=== PATIENT | male | born 1970 | race African-American/Black ===

== ENCOUNTER 2016-12-25 18:29 | Observation (INO) | payer OTHER, MEDICAID ==
[2016-12-25] MEDS ORDERED: NS 0.9% 1000 ML* 1,000 ML IV ONE (20:24)
--- NOTE | 2016-12-25 21:08 | ED ---
Izabella Valencia Salem, scribed for Judy Valerouel on 12/25/16 at 2000 . Neurological HPI - HPI Summary HPI Summary: Patient is a 46 y/o M who presents to the ED s/p 5 seizures today (with LOC). Pt was seen in the ED earlier today by Dr. Sheets who proposed that he be admitted. However, pt left AMA twice. He states that he had a seizure after leaving the first time, but not after the second time. Pt and are now agreeable to admission. states that pt has adult onset seizures since the past 5 years (hx of sz). He has been consistently taking Topamax and Vimpat, and he recently saw Dr. Black (neurologist). He denies any recent changes in medication. Pt states that his last seizure was approximately 1 month ago. He has no other complaints. - History of Current Complaint Chief Complaint: EDSeizure Stated Complaint: SEIZURE Time Seen by Provider: 12/25/16 19:49 Hx Obtained From: Patient, Family/Plant Etiologist - . Onset/Duration: Gradual Onset Timing: Intermittent Episodes Lasting: Onset Severity: Moderate Current Severity: Moderate Seizure Severity: Moderate Number of Seizures: 5 Pain Intensity: 0 Pain Scale Used: 0-10 Numeric Syncope Context: Loss of Consciousness: Yes Aggravating: Nothing Alleviating: Nothing Associated Signs and Symptoms: Positive: Negative Related Hx: Seizure - Allergy/Home Medications Allergies/Adverse Reactions: Allergies Allergy/AdvReac Type Severity Reaction Status Date / Time No Known Allergies Allergy Verified 11/16/13 12:27 PMH/Surg Hx/FS Hx/Imm Hx Cardiovascular History: Denies: Hx Pacemaker/ICD Sensory History: Denies: Hx Hearing Aid Neurological History: Reports: Hx Seizures Psychiatric History: Denies: Hx Panic Disorder - Surgical History Surgery Procedure, Year, and Place: TEETH EXTRACTIONS Infectious Disease History: Denies: Traveled Outside the [place] in Last 30 Days - Family History Known Family History: Positive: Other - neg: sz - Social History Alcohol Use: Weekly Alcohol Amount: 1-2 beers a week Hx Substance Use: Yes Substance Use Type: Reports: Marijuana Substance Use Comment - Amount & Last Used: per neurologist Hx Tobacco Use: No Smoking Status (MU): Former Smoker Review of Systems Negative: Fever Neurological: Other - Sz. LOC. All Other Systems Reviewed And Are Negative: Yes Physical Exam - Summary Physical Exam Summary: Well appearing, no pain distress Skin: warm, dry, reflects adequate perfusion Head/face: normal Eyes: EOMI, ANNAMARIA ENT: normal Neck: supple, nontender Resp: CTA, breath sounds present Cardio: RRR, pulses symm Abd: nontender, soft Bowel: present Musc: normal, strength/ROM intact Neuro: normal, sensory motor intact, A&Ox3 Triage Information Reviewed: Yes Vital Signs On Initial Exam: Initial Vitals Temp Pulse Resp BP Pulse Ox 98.2 F 56 18 129/81 100 12/25/16 18:32 12/25/16 18:32 12/25/16 18:32 12/25/16 18:32 12/25/16 18:32 Vital Signs Reviewed: Yes Diagnostics - Vital Signs Vital Signs Temp Pulse Resp BP Pulse Ox 12/25/16 18:32 98.2 F 56 18 129/81 100 - Laboratory Lab Statement: Any lab studies that have been ordered have been reviewed, and results considered in the medical decision making process. Course/Dx - Diagnoses Provider Diagnoses: Recurrent seizures - Physician Notifications Discussed Care Of Patient With: Demetrius Mcduffie Time Discussed With Above Provider: 20:23 Instructed by Provider To: Admit As Inpatient Admit/Transition Orders Completed By ED Provider: Yes Discharge - Discharge Plan Condition: Stable Disposition: ADMITTED TO [facility] The documentation as recorded by the Izabella fowler Salem accurately reflects the service I personally performed and the decisions made by Anjum medina Emmanuel.
[2016-12-25] MEDS ORDERED: LORazepam INJ* 2 MG/ML 1 ML VIAL IV PUSH ONE (23:36)
[2016-12-26] MEDS ORDERED: Heparin VIAL(*) 5000 UNITS/ML VIAL (FIVE THOUSAND) SUBCUT SCH (06:00)
--- NOTE | 2016-12-26 07:32 | HP ---
CC: [facility] [place] * H[place]ORY AND PHYSICAL: DATE OF ADMISSION: 12/26/16 CHIEF COMPLAINT: Seizure. HISTORY OF PRESENT ILLNESS: The patient is a 46-year-old who said this morning he was coming down to get a cup of coffee and the next thing he realized he was on the floor and his told him he was drooling and his teeth were chattering. He did lose control of his bladder, but he denies any tongue biting. He was also confused somewhat afterwards. Apparently, these happened multiple times and he came to the ER. For some reason, he came to the ER twice and left AMA twice and this time he came and decided to stay. He does see Dr. Black for his seizures. PAST MEDICAL HISTORY: Significant for the seizure disorder and meningitis when he was in college. CURRENT MEDICATIONS: 1. Vimpat 250 mg in the morning and 250 mg in the evening. 2. Topamax 100 mg twice daily. ALLERGIES: No known drug allergies. FAMILY HISTORY: Mother is alive at 71 with hypertension. Father is alive at 82 with hypertension. SOCIAL HISTORY: No tobacco, alcohol, or recreational drug use. He is unemployed. He is . His , Macy Hidalgo, is his health care proxy. He has 2 children. REVIEW OF SYSTEMS: A 14-point review of systems is completed with the patient. All pertinent positives and negatives are in the history of present illness, otherwise it is negative. PHYSICAL EXAMINATION GENERAL: A pleasant gentleman lying in bed, in no acute distress. VITAL SIGNS: Blood pressure 111/64, pulse ox 100%, respiratory rate 14 breaths per minute, heart rate 62 beats per minute, and temperature 98.1 degrees. HEENT: Normocephalic and atraumatic. Pupils are equal, round and reactive to light. Moist mucous membranes. NECK: Supple. No JVD, bruits, palpable thyroid, or lymphadenopathy. CHEST: Clear to auscultation and percussion bilaterally. CARDIOVASCULAR: S1, S2 appreciated. Regular rate and rhythm. No murmurs, gallops, or rubs. ABDOMEN: Positive bowel sounds in all 4 quadrants. Soft, nontender, and nondistended. EXTREMITIES: No cyanosis, clubbing, or edema; +2 peripheral pulses bilaterally. NEUROLOGIC: Alert and oriented x3. Moves all extremities. SKIN: No rashes or abnormalities. DIAGNOSTIC STUDIES/LAB DATA: White count 6.5, hemoglobin 13.9, hematocrit 42, and platelets are 191. Sodium is 139, potassium 3.9, chloride 110, CO2 22, BUN 18, creatinine 1.0, and glucose is 80. Urinalysis is unremarkable. EKG shows normal sinus rhythm at 66 beats per minutes, normal axis, and no acute ST- T wave changes. ASSESSMENT AND PLAN: 1. Seizure disorder: For some reason, the patient has had a lot of seizures today. He did have one month ago as well. He says he is complaint with medications. I will add Keppra 500 mg twice daily. The Neurology should see him tomorrow. We will do neuro check q.4 hours. 2. FEN: Regular diet. 3. DVT prophylaxis: Heparin subcu. 4. Code status: The patient is a full code. TIME SPENT: Over 80 minutes were spent on this H and P; more than 45 minutes of which were spent in direct [id number] contact with the patient, evaluation , physical exam, counseling, and coordination of care. [id number]/[facility] #: [id number] MOOKIE
[2016-12-26] MEDS ORDERED: levETIRAcetam TAB* 500 MG PO SCH (09:00)
[2016-12-26] MEDS ORDERED: Topiramate TAB(*) 100 MG PO SCH ×2 (09:00→21:00)
[2016-12-26] MEDS ORDERED: Lacosamide TAB* 100 MG TAB PO SCH ×4 (09:00→18:00)
[2016-12-26] MEDS ORDERED: LaCOSAMide TAB* 150 MG TAB PO SCH (09:30)
[2016-12-26] MEDS ORDERED: Topiramate TAB(*) 25 MG PO ONE (09:40)
[2016-12-26 10:28] VITALS: BP 116/66
--- NOTE | 2016-12-26 12:27 | DS ---
CC: Dr. Black * DATE OF ADMISSION: 12/26/2016. DATE OF DISCHARGE: 12/26/2016. HISTORY: This 46-year-old man was admitted for repeated seizures in one day. He has a five year history of seizure disorder. He has had both grand mal seizures and petit mal seizures. Usually his grand mal seizures occur during his sleep. This is a little more unusual. He was having grand mal seizures while awake. He was in the emergency room more than once yesterday. He signed out AMA when he awoke from a seizure; however, his had driven him there and he had a seizure on leaving the parking lot and she brought him right back. The total was somewhere about four or five seizures for the 24 hours, his last one was about 5:00 p.m. on 12/25/2016. The patient is followed by Dr. Black. He saw Dr. Black in the office on November 28. She had increased his Topiramate from 100 mg b.i.d. to 150 mg b.i.d. I called [facility] pharmacy and for some reason they never received a prescription for the new dose. The patient also saw Dr. Black just a few days ago in [place] in consultation and again was told to take the increased dose. The patient on the morning of discharge received 150 mg of Topiramate and his usual dose of Vimpat. I sent prescription for 100 mg of Topiramate and 50 mg Topiramate to take each one twice daily for a total of 150 b.i.d. His Lacosamide dose is 250 mg in the morning and 250 mg in the evening, also utilizing two different dose strength unit doses. FINAL DIAGNOSIS: Seizure disorder. DISCHARGE MEDICATIONS: 1. Topiramate 150 mg b.i.d. 2. Lacosamide 250 mg a.m., 150 mg p.m. [id number]/[facility] #: [id number] [facility]
--- NOTE | 2016-12-27 21:55 | EEG ---
ELECTROENCEPHALOGRAPHY: DATE OF STUDY: 12/26/16 - ROOM #[id number] REFERRING PHYSICIAN: Demetrius Mcduffie MD LOCATION: He was in the emergency room, I believe, when this was obtained. CLINICAL PROBLEM: The patient with repetitive seizures the day prior to this recording and perhaps the day of this recording. MEDICATIONS: Include: 1. Vimpat. 2. Keppra. 3. Topiramate. REPORT: This 16-channel EEG is remarkable for background activity consisting of a reasonably well formed alpha rhythm in the posterior derivations at about 9 to 10 cycles per second, which is symmetric. Moderate voltage beta rhythms are seen bifrontally. The patient is clinically drowsy at the beginning of the recording. Right temporal theta rhythms are noted with slow rhythms seen from the left temporal region. Vertex sharp activity and sleep spindles are noted episodically. The patient wakes intermittently with some movement artifact. Occasionally during drowsiness, some left anterior temporal sharp waves are noted without a clear following slow wave and without phase reversals. Activation procedures are not attempted. CLINICAL IMPRESSION: Borderline abnormal EEG due to asymmetrical slowing from the left temporal region due to drowsiness as well as some poorly-formed sharp waves without clear epileptiform morphology. This tracing could be compatible by postictal left hemispheric slowing, but there are no clear epileptiform discharges during this recording. [id number]/[facility] #: [id number] [facility]ENTERMonika
[2016-12-28 08:00] LABS: Topiramate 4.2 mcg/mL
[2016-12-28 10:41] LABS: Lacosamide 4.4 mcg/mL (1.0 - 10.0)
== END 2016-12-26 12:45 | disposition home or self-care (01) ==
LOC: ED 18:29 → MED 12-26 01:04 → INTOOBSV 12-26 01:04
PROVIDERS: ADMIT Internal Medicine; ATTEND Internal Medicine
DX: G40.409 Other generalized epilepsy and epileptic syndromes, not intractable, without status epilepticus (principal); Z87.891 Personal history of nicotine dependence
CPT/HCPCS: 80201; 80299; 95816; 96361; 96372; 96374; 99283; A9270-GY; G0378; J1644; J2060

== ENCOUNTER 2017-09-19 12:58 | Day surgery (SDC) | payer BC, MEDICAID, OTHER ==
--- NOTE | 2017-09-04 08:23 | HP ---
CC: Dr. Zakia Henderson, [facility] * ADMISSION HISTORY AND PHYSICAL: DATE OF ADMISSION: 09/19/17 ATTENDING SURGEON: Dr. Lawson Garcia.* (DICTATED BY AMADA ROONEY) CHIEF COMPLAINT: Right inguinal hernia. HISTORY OF PRESENT ILLNESS: This is a 46-year-old male with history of seizure disorder, who about 6 weeks ago noted presence of a mildly painful bulge in the right inguinal region. This may have been precipitated by a cough, but there was no other straining injury. He has been minimally symptomatic since then with mild discomfort related to physical activity though nothing to suggest incarceration or strangulation. He was seen by his primary care provider and referred for evaluation. He was seen in the office by Dr. Garcia on 08/30/17 at which time exam confirmed the presence of a right inguinal hernia. This was minimally tender and reducible. No hernia noted on the left. The indications for surgery were reviewed including options for approach. He understands the risks, benefits, and alternatives. He would like to proceed as scheduled with laparoscopic repair of right inguinal hernia with mesh. PAST MEDICAL HISTORY: Seizure disorder (followed by Dr. Black). No other significant medical history. PAST SURGICAL HISTORY: Previous surgery includes vasectomy and dental extractions, no problems reported. CURRENT MEDICATIONS: 1. Depakote 250 mg 1 tablet each morning along with a 500 mg tablet, Depakote 500 mg one tablet each morning and two tablets each evening. 2. Clonazepam 0.5 mg p.r.n. at onset of seizure, may repeat x1 p.r.n. (uses approximately once every 3 weeks). 3. Vimpat 200 mg b.i.d., Vimpat 50 mg q.a.m. and 3 tablets q.p.m. 4. Medical marijuana (THC 2.5 mg/CPD 47.5 mg 1:19 ratio, 0.5 mL (aerosol) b.i.d. used for seizure prophylaxis. 5. Vitamin D3 5000 IU once daily. 6. Alpha-lipoic acid 200 mg b.i.d. 7. CoQ10 200 mg q. day. 8. Crowley-3 1200 mg b.i.d. DRUG ALLERGIES: None known. FAMILY HISTORY: Negative for anesthesia problems, bleeding, or clotting disorders. SOCIAL HISTORY: The patient is . He has 2 children. He is not currently employed. He denies use of tobacco. He drinks 2 to 3 drinks per week. He denies any other recreational drug use. REVIEW OF SYSTEMS: General: No recent constitutional symptoms, although he has had some symptoms that he attributes to side effects from his seizure medications including night sweats. He relates a weight loss of 10 to 15 pounds over the past 1 to 2 years, again related to medications side effects. No other recent acute illnesses or constitutional symptoms. Cardiovascular: No chest pain, palpitations, history of hypertension, or heart murmur. Respiratory: No asthma, chronic cough, or shortness of breath. GI: No problems reported. : No problems reported, specifically no dysuria. Endocrine: No diabetes or thyroid dysfunction. Neurologic: As above. No additions. PHYSICAL EXAMINATION GENERAL: Well-nourished, well-developed, male in no acute distress. VITAL SIGNS: Height 5 feet 11 inches, weight 160 pounds, blood pressure 120/70 , pulse 72. HEENT: Pupils equal, round, and reactive. EOMs intact. No conjunctival pallor. Oropharynx teeth in good repair. No intraoral lesions. NECK: No lymphadenopathy, thyromegaly, or masses. LUNGS: Clear to auscultation. No wheezes. HEART: Regular rate and rhythm. No murmur noted. ABDOMEN: Soft, nontender to palpation. No palpable masses or organomegaly. Per Dr. Garcia's exam right inguinal hernia, reducible. No hernia noted on the left. GENITALIA: Not examined. RECTAL: Not done. BACK: No spinous process or CVA tenderness. EXTREMITIES: No edema. NEUROLOGIC: Grossly intact. SKIN: Warm and dry. No suspicious rashes or lesions. IMPRESSION: Right inguinal hernia. PLAN: Laparoscopic repair, right inguinal hernia with mesh. AMADA ROONEY [id number]/[facility] #: [id number] MTDD
[~2017-09-19 12:58] MED LIST: Buffered Lidocaine 0.9% SYRIN* 5 ML/SYR SYRINGE INTRADERM ONE; DiMENhydriNATE IV* 50 MG/ML VIAL IV PUSH PRN; Famotidine IV* 10 MG/ML 2 ML (20 mg) IV ONE; Morphine INJ* 2 MG/ML 1 ML CARPUJECT IV PRN; Naloxone* 0.4 MG/ML 1 ML VIAL IV PRN; PROCHLORPERAZINE INJ 5 MG/ML 2 ML VIAL IV PRN; Scopolamine 1.5 mg* PATCH TRANSDERM PRN; fentaNYL* 50 MCG/ML 2 ML VIAL (100 MCG VIAL) IV PRN
[2017-09-19] MEDS ORDERED: ceFAZolin 2 GM in 100 MLS NS (*) BAG IVPB ONE (13:03)
[2017-09-19] MEDS ORDERED: Famotidine IV* 10 MG/ML 2 ML (20 mg) ONE (13:03)
[2017-09-19] MEDS ORDERED: Midazolam* 1 MG/ML 5 ML VIAL (5 MG) ONE (13:44)
[2017-09-19] MEDS ORDERED: fentaNYL* 50 MCG/ML 2 ML VIAL (100 MCG VIAL) ONE (13:44)
[2017-09-19] MEDS ORDERED: Bupivacaine 0.25% SDV* 30 ML ONE (14:09)
[2017-09-19] MEDS ORDERED: Ketorolac INJ* 30 MG/ML 1 ML VIAL ONE (14:59)
[2017-09-19] MEDS ORDERED: Propofol* 10 MG/ML 20 ML BTL IV PUSH ONE (15:05)
[2017-09-19] MEDS ORDERED: HYDROcodone/ACETAMIN 5-325 MG* 1 TAB PO PRN (15:24)
[2017-09-19] MEDS ORDERED: Acetaminophen TAB* 325 MG PO PRN (15:24)
--- NOTE | 2017-09-19 15:28 | OP ---
Operative Report - Blank - Operative Report Date of Operation: 09/19/17 Note: Preop Dx: R inguinal hernia Postop Dx: R inguinal direct hernia Procedure: Laparoscopic R inguinal repair with mesh Surgeon: Dr. Garcia Anesthesia: [facility] Executive Director: Alex BARBER, Sherman BARBER, Cate BUTLER Fluids: 1200 ml LR EBL: less than 50 ml Drains: none Specimen: none Findings: see dictated operative note
[2017-09-19 16:32] VITALS: BP 132/86
--- NOTE | 2017-09-20 15:24 | OP ---
CC: Dr. Zakia Henderson * DATE OF OPERATION: 09/19/17 - [facility] DATE OF : 68 SURGEON: Lawson Garcia MD GARNETT MACHINE OPERATOR: AMADA Subramanian ANESTHESIOLOGIST: Dr. Reina. ANESTHESIA: General anesthesia. PRE-OP DIAGNOSIS: Right inguinal hernia. POST-OP DIAGNOSIS: Right inguinal hernia. OPERATIVE PROCEDURE: Laparoscopic inguinal hernia repair with mesh. ESTIMATED BLOOD LOSS: Minimal blood loss. FLUIDS: Minimal crystalloid fluid given. SPECIMEN: None. DRAINS: None. DESCRIPTION OF PROCEDURE: The patient was identified in the preoperative area. Patient's abdomen was marked. Consent signed. The patient was brought to the operating room and placed on the operating table in supine position. Preoperative antibiotics were given. Sequential devices were placed on bilateral lower extremities. General anesthesia was induced. The patient's abdomen was prepped and draped in standard surgical fashion. Time-out was performed. Infraumbilical incision was made. This was deepened down to the anterior fascia. On the left, this fascia was incised and the rectus pillar retracted laterally and then we bluntly entered into the preperitoneal plane, which was bluntly opened up down to the pubic symphysis. Next, a 12-mm trocar was inserted into this area. The balloon of the trocar inflated and a camera inserted through this after a pressure of 12-mm was insufflated. The patient tolerated the insufflation well. The camera was used for blunt dissection to free the preperitoneal plane. We then placed two 5-mm trocars in the lower midline and dissection was carried out on the right side. We exposed both Daniel's ligament on left and right. A direct hernia was identified. Prior to reducing this, I did check to see the epigastric vessels, which were maintained anteriorly and blunt dissection was carried out into Bogros space. The blunt dissection was carried out to reduce the direct inguinal hernia until it fell down nicely. The peritoneum was bluntly retracted posteriorly and the spermatic structures were skeletonized. There was no evidence of a hernia at the indirect space. Next, a Bard 3DMax medium sized mesh for the right side was then placed into the preperitoneal plane, allowed to unfurl. It was tacked at the Daniel's ligament on the right just above the pubic symphysis and then laterally as well. It had no tension and cover the full myopectineal orifice. We then allowed the abdomen to collapse. Trocars were removed under direct vision. Review of the abdomen showed that there was some pneumoperitoneum. For this reason, we dissected down to the posterior fascia, it was incised and the peritoneum opened and the gas was removed. I did not look in as I did not feel that we were in any significant violation of the peritoneal cavity, having seen the dissection. For this reason, we just closed the anterior fascia with a 0 Polysorb suture in a [id number] fashion over this a rectus muscle and then irrigated the wound and closed all 3 incisions with 4-0 Monocryl subcuticular sutures. Steri-Strips and sterile dressings were applied. The patient tolerated the procedure well, was woken up in the OR and transferred to the PACU in stable condition. [id number]/[facility] #: [id number] MOOKIE
[2017-09-22] MEDS ORDERED: Scopolamine PATCH Remove* 1 NOTE MISC PATCH OFF ONE (06:01)
== END 2017-09-19 17:08 | disposition home or self-care (01) ==
LOC: OR 12:58
PROVIDERS: ATTEND Surgery
DX: K40.90 Unilateral inguinal hernia, without obstruction or gangrene, not specified as recurrent (principal); G40.89 Other seizures
CPT/HCPCS: C1781; J1885; J2250; J2704; J3010

== ENCOUNTER 2018-02-01 14:00 | Inpatient (IN) | payer OTHER ==
[2018-02-01] MEDS ORDERED: Acetaminophen TAB* 325 MG PO PRN (16:45)
[2018-02-01] MEDS ORDERED: Ondansetron INJ* 2 MG/ML VIAL IV PRN (16:46)
[2018-02-01] MEDS ORDERED: diPHENhydraMINE PO* 25 MG PO PRN (16:53)
[2018-02-01] MEDS ORDERED: LORazepam INJ* 2 MG/ML 1 ML VIAL IV PRN (16:53)
--- NOTE | 2018-02-01 17:00 | ADMNOTE ---
Admission Note HPI - HPI Handedness: right History of Present Illness: Noah Hidalgo is a 47 year old man who has a history of childhood seizures, then was seizure free off medications from the age of 1 until age 40. He has focal seizures with impaired awareness and occasional evolution into bilateral convulsive activity (secondary generalized). He underwent long-term video EEG monitoring in [place] in November 2014, which captured 4 seizures over a 24 hour period, with data captured for 3 out of the 4. He had oral automatisms, bimanual automatisms associated with decreased responsiveness and agitated behavior. With secondary generalization, there was versive head movement to the right. Electrographically, there was semi-rhythmic delta-range slowing with was maximal in the left temporal region, but could be more diffusely represented in the left hemisphere in the initial portion of the seizure, then often a voltage attenuation followed by re-emergence of delta activity on the left. 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 Noah has continued to experience breakthrough seizures every few weeks despite trials of multiple medications. He is currently on a combination of Depakote and Vimpat, but has previously been treated with Dilantin, Lamictal, Keppra, Trileptal, zonisamide, Topamax and Onfi. Some of these medications were limited by side effects and are detailed below. He is also currently on a CBD oil herbal preparation. He last had a cluster of seizures on January 13 and . He had 2 "small" grand mal seizures, per his , and a few petit mal. He went into their daughter's room after one of the generalized seizures and repeatedly took his shirt off and put it back on. His agitation after convulsions often centers around the need to satisfy a basic need, like using the bathroom, taking off a sweat- soaked shirt, etc. Prior to these events, his last seizure was December 27. She gives him clonazepam after a focal seizure to try and prevent a generalized convulsion. He had not missed any medications, was not sleep-deprived, etc before the small cluster of seizures. Seizure Types: focal ("petit mal") - oral automatisms, eyes open, diaphoresis, unresponsive. secondary generalized ("grand mal") - tonic stiffening, hands turn in, clonic activity, urinary incontinence. Can become agitated after one Prior/current AEDs: Dilantin - rash Lamictal - rash Keppra- agitated/aggressive phenobarb - infancy Trileptal - incomplete efficacy and side effects (blurred vision) zonisamide - rash Topamax - incomplete efficacy but fewer GTCs. 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 Viral meningitis at age 17. PNEA Risk Factors: None PMH/Surg Hx/FS Hx/Imm Hx Endocrine/Hematology History: Denies: Hx Diabetes Cardiovascular History: Denies: Hx Hypertension, Hx Pacemaker/ICD GI History: Reports: Other GI Disorders - right inguinal hernia History: Denies: Hx Renal Disease Sensory History: Denies: Hx Contacts or Glasses, Hx Hearing Aid Opthamlomology History: Denies: Hx Contacts or Glasses Neurological History: Reports: Hx Seizures - reports diagnosed 2010 Psychiatric History: Denies: Hx Panic Disorder - Surgical History Surgery Procedure, Year, and Place: wisdom teeth extraction in dental office. vasectomy done in dr anthony office Hx Anesthesia Reactions: No Infectious Disease History: Denies: Traveled Outside the [place] in Last 30 Days - Family History Known Family History: Positive: Seizure Disorder - daughter, Other - Social History Occupation: Disabled Lives: With Family Alcohol Use: Rare Hx Substance Use: Yes Substance Use Type: Reports: Marijuana - CBD oil supplement Substance Use Comment - Amount & Last Used: medical marijuana Hx Tobacco Use: No Smoking Status (MU): Never Smoked Tobacco EMU Exam - Exam Physical/Neurological Exam: Physical Exam: General: Well appearing in no acute distress. MSK: no extremity deformities Derm: no rashes or lesions on visible skin Neurological Exam: Mental Status: Awake and alert. Oriented to person, place, and time. Fluent. Comprehension intact. Affect appropriate. Cranial Nerves: Visual tucker full to confrontation. Versions were full and without nystagmus. Facial musculature and sensation were symmetric. Hearing grossly intact to voice. Palate was upgoing bilaterally. Tongue was midline. Shoulder shrug was symmetric. Motor: Bulk, tone, and strength were normal throughout. Pronator drift was absent. There were no abnormal movements/no tremor. Sensory: Sensation to light touch intact. Romberg was deferred. Coordination: Finger to nose and heel to hernandez were intact. Reflexes: not tested. Gait: Narrow based and normal. EMU Review of Systems Review of Systems: A 12 point review of systems was completed and significantly positive for: tremor occasionally since starting Depakote. The remainder of the review was negative except as stated above in the HPI. EMU Diagnostics - Diagnostic Lab Results: CSF autoimmune encephalopathy panel negative Interim video-EEG long-term monitoring report: LTM November 2014: semi-rhythmic delta-range slowing with was maximal in the left temporal region, but could be more diffusely represented in the left hemisphere in the initial portion of the seizure, then often a voltage attenuation followed by re-emergence of delta activity on the left. 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 He continues to have intermittent seizures despite dual therapy with Depakote and Vimpat as well as use of a commercially available CBD oil supplement. LTM in 2014 suggested left lateralization, and probably temporal versus frontal origin, but was not sufficiently localizing. He had not wished to consider further surgical work up until recently, and since the last EEG monitoring was 3 years ago, the goal of the present terminal operations supervisor video/EEG monitoring session is to again characterize these events, evaluate the EEG for epileptiform activity and ensure that no significant changes have occurred which would preclude him from further surgical work up. After the last monitoring admission, it was suggested that if he wanted to pursue continued surgical work up, an interictal PET would be helpful and an ictal SPECT would be considered. Furthermore, he would need intracranial monitoring for localization if the above data were concordant. Plan: Admit to the Medicine Service, Dr. Donato attending, Dr Black consulting prison video EEG monitoring for the purpose of characterizing events above Seizure precautions 1mg IV lorazepam as needed for GTC with the goal to administer RAYMON for a convulsion to try and mitigate post-ictal agitation. May repeat in 3 minutes for agitation if needed Home AED regimen: Vimpat 250mg QAM and 350mg QPM and Depakote 750mg QAM and 1000mg QPM according to my records however pt states the nursing he is only taking 500mg BID. Unclear if he reduced the dose on his own and not currently present any longer. Will clarify * Decrease Vimpat to 200mg tonight and 150mg tomorrow morning. Continue Depakote dose unchanged Continue on other prescribed home medications, including CBD oil supplement , which has been approved by Geoff Segovia of pharmacy for patient to self- administer while he is here. * Discussed patient and nursing safety with nursing given patient's tendency to get agitated after a GTC. Will enlist his 's help also in educating nursing about how best to care for him in the post-ictal period. May need to allow him to leave the room if he feels he needs to walk and would need to unplug the headbox from the [employer] machine in this case. Should also allow him to use the bathroom (safely), change clothes if needed, etc. Gentle redirection as opposed to physically restraining will be important.
[2018-02-01] MEDS ORDERED: clonazePAM TAB(*) 0.5 MG PO PRN (17:34)
[2018-02-01] MEDS ORDERED: Lacosamide TAB* 100 MG TAB PO SCH ×2 (18:00→21:00)
[2018-02-01] MEDS ORDERED: LORazepam INJ* 2 MG/ML 1 ML VIAL PRN (18:58)
[2018-02-01] MEDS ORDERED: Divalproex DR TAB(*) 500 MG PO SCH (21:00)
[2018-02-01] MEDS ORDERED: MEDICAL MARIJUANA INH SCH (21:00)
[2018-02-01] MEDS: [UNRECOGNIZED DRUG - OTHER] PO SCH (21:09)
[2018-02-01] MEDS: Divalproex DR TAB(*) 500 MG PO SCH (21:10)
--- NOTE | 2018-02-01 21:18 | HP ---
CC: Dr. Henderson * [facility] MEDICINE HISTORY AND PHYSICAL: DATE OF ADMISSION: 02/01/18 PRIMARY CARE PHYSICIAN: Dr. Henderson. ATTENDING PHYSICIAN: Dr. Darci Donato * (dictation provided by Ryann Gomez NP). CHIEF COMPLAINT: Uncontrolled seizures. HISTORY OF PRESENT ILLNESS: Mr. Hidalgo is a 47-year-old male with a past medical history of seizures as a child who redeveloped seizures about 6 years, who has been followed currently by Dr. Elke Black from Neurology team. Mr. Hidalgo has had ongoing seizures usually at night while he is sleeping ranging from petit mal to grand mal seizures witnessed by his occurring about every few weeks. At times he can become agitated after a seizure while in the post-ictal state. Despite multiple medication changes, he has continued to have these uncontrolled seizures. He has had longtime epilepsy monitoring in [place] and did have documented seizure activity and returns now under the direction of Dr. Black. The patient states that prior coming into this hospitalization, he had no complaints. PAST MEDICAL HISTORY: Epilepsy, history of meningitis as a teenager. MEDICATIONS: 1. Keppra 750mg po qAM. 2. Keppra 1000mg po qPM. 3. Vimpat 250 mg po qAM. 4. Vimpat 350 mg po qPM. 5. Clonazepam ODT prn seizures. ALLERGIES: No known drug allergies. FAMILY HISTORY: The patient reports both his father and mother are alive and well. He has no specific other history to offer today. SOCIAL HISTORY: No report of tobacco use. The patient drinks alcohol very occasionally. No report of drug use. The patient lives with his , his healthcare proxy. REVIEW OF SYSTEMS: A 14-point review of systems was completed with Mr. Hidalgo and all those not mentioned above were negative. PHYSICAL EXAMINATION GENERAL: The patient is lying in the bed. He is hooked to the EEG monitor. His is at the bedside. VITAL SIGNS: Thus far, respiratory rate has been documented at 18. Remainder of the vital signs are pending. LUNGS: Clear to auscultation bilaterally with no accessory muscle use and good aeration. HEART: S1, S2. No murmur, rub, or gallop and regular. ABDOMEN: Soft and nontender with bowel sounds positive x4. EXTREMITIES: No cyanosis or edema. NEURO: He is alert. He is oriented x3. He moves all extremities equally. There is no facial asymmetry or focal weakness. Extraocular movements are intact. SKIN: Intact. DIAGNOSTIC STUDIES/LAB DATA: No labs for this visit or imaging. ASSESSMENT: Mr. Hidalgo is a 47-year-old male with past medical history of epilepsy with ongoing uncontrolled seizures ranging from petit mal to grand mal seizures usually at night while he is sleeping as witnessed by his . Dr. Black has recommended long-term continuous EEG monitoring to assist with further medication adjustments and management. Our recommendations are: The patient will be monitored in the EMU unit. He will have Ativan available for grand mal seizures. Dr. Black has recommended that we decrease his Vimpat dose and that has been accomplished per her recommendation. He will continue on his home Depakote dose. The patient takes CBD supplement, which he also has available to be self- administered. TIME SPENT: Approximately 60 minutes were spent in the consultation of this patient, more than half time spent with the patient at the bedside reviewing the events leading up to and during this hospitalization, performing the physical examination, and reviewing the plan of care. RYANN GOMEZ NP [id number]/CPS #: [id number] MOOKIE
[2018-02-02] MEDS ORDERED: Lacosamide TAB* 100 MG TAB PO SCH (09:00)
--- NOTE | 2018-02-02 09:33 | EEG ---
HALF-WAY VIDEO/EEG MONITORING - Monitoring Monitoring Start Date: 02/01/18 Current Monitoring Session: 02/01/18 to 02/04/18 EEG Clinical Indication: Noah Hidalgo is a 47 year old man with a history of seizures in infancy/childhood who was seizure-free of medications from age 1 to 40. Since then, he has had episodes of staring, unreponsiveness, oral and manual automatisms with occasional secondary generalization. With convulsions, he can become quite agitated in the post-ictal state. He has failed multiple antiseizure medications and despite current dual therapy with lacosamide and Depakote, he continues to experience seizures on a monthly basis. Previous LTM in 2015 demonstrated focal epilepsy which lateralizes to the left hemisphere, but exact localization was unclear. Recommendation was for additional imaging such as interictal PET and intracranial monitoring if he wished to pursue a surgical option. At that time, he did not wish to consider further surgical work up, but now wishes to do so and so repeat LTM is undertaken in order evaluate for any changes from the monitoring session 3 years ago which would preclude further surgical work up. Introduction: INTRODUCTION: The EEG was monitored from 21 scalp electrodes. Nineteen electrodes consisted of the standard parasagittal, temporal and midline leads of the International 10 -20 system. In addition, special electrodes T1 and T2 were placed. EEG data were recorded on an [employer] system with simultaneous MPEG-4 digital video recording of patient behavior. EEG recording was in a monopolar montage with all electrodes referenced to FCz. Significant behavioral events were signaled by an event button, or putative electrical seizure events were detected by a computer program. All EEG data were reviewed in their entirety on a monitor with reconstruction of montages and adjustments of sensitivity and filtering. Simultaneous patient behavior was viewed on an adjacent monitor and correlated with the EEG. - Medications Active Medications: Acetaminophen (Tylenol Tab*) 650 mg PO Q6H PRN PRN Reason: PAIN Diphenhydramine HCl (Benadryl Po*) 25 mg PO Q6H PRN PRN Reason: ITCHING Divalproex Sodium (Depakote Dr Tab(*)) 750 mg PO QAM DAV Divalproex Sodium (Depakote Dr Tab(*)) 1,000 mg PO 2100 DAV Last Admin: 02/01/18 21:10 Dose: 1,000 mg Lacosamide (Vimpat Tab*) 150 mg PO QAM DAV Lacosamide (Vimpat Tab*) 200 mg PO 2100 [facility] Last Admin: 02/01/18 21:10 Dose: 200 mg Lorazepam (Ativan Inj*) 1 mg IV PUSH ONCE PRN PRN Reason: ANXIETY Lorazepam (Ativan Inj*) 1 mg .SEE ORDER Q8H PRN PRN Reason: Generalized Tonic Clonic Seizu Pto: Hemp Extract (Oil) 1 admin PO 0900,1800 [facility] Last Admin: 02/01/18 21:09 Dose: 1 admin Ondansetron HCl (Zofran Inj*) 4 mg IV Q6H PRN PRN Reason: NAUSEA - Description Background: The waking background showed appropriate organization with clearly defined anterior-posterior voltage and frequency gradients. There was a defined posterior dominant rhythm of 9 Hertz, which was symmetrical and showed normal reactivity. Anteriorly, there was the expected pattern of lower voltage and more irregular theta and beta rhythms. There was intermittent, polymorphic theta slowing in the left frontotemporal region with sharp contours during waking. The sleep background was appropriately organized with well-developed spindles and vertex waves indicative of stage 2 sleep. These sleep transients showed appropriate morphology and were bilaterally synchronous and symmetrical. Development of diffuse delta range frequencies with dropout of stage 2 architecture accompanied transition to slow wave sleep, and a lower voltage mixed frequency pattern associated with eye movements was consistent with REM sleep. Intericatal Epileptiform Activity: #01 02/01: Medications: Depakote 750mg QAM and 1000mg QPM, lacosamide 200mg at HS and 150mg AM Background demonstrated normal organization with PDR 9, as above. During sleep, there were occasional epileptiform discharges of low to moderate voltage which were typically spike and slow wave in morphology but sometimes were broad-based sharp waves. These were maximally expressed at T3/T7 with a field to F7 and T1. These occurred a few times per hour. #02 02/02: Medications: Depakote 750mg QAM and 1000mg QPM, lacosamide 100mg at HS on 02/02 and 250mg AM on 02/03 The background continued to demonstrate normal organization, normal PDR. There was intermittent, polymorphic theta slowing in the left frontotemporal region with sharp contours during waking. Rarely, epileptiform discharges in the previously described distribution were seen during waking. The patient experienced a seizure at 03:06 on 02/03, then pulled off all wires at 03:10, ending this recording period. #03 02/03: Medications: Depakote 750mg QAM and 1000mg QPM, lacosamide 250mg QAM and 350mg QPM Background as stated above with epileptiform discharges during sleep maximal at T3/T7 with a field to F7, T1/FT9. #04 02/04: Medications: Depakote 750mg QAM and 1000mg QPM, lacosamide 250mg QAM and 350mg QPM Background as stated above with epileptiform discharges during sleep maximal at T3/T7 with a field to F7, T1/FT9. Ictal Activity: #01 02/01: No patient events, no seizures. #02 02/02: The patient experienced a seizure out of stage 2 sleep at 03:06:15 on 02/03. He had only been asleep for 5 minutes. This began with semi-rhythmic 2 to 3 Hz sharp wave discharges over the left temporal region, maximal at T3 but also well represented at T1, F7, A1 and within half a second also spread to the centroparietal region on the left. In the next second, activity was noted in the right frontal region as well at F4 and FP2. 3 seconds after the onset, the EEG was obscured by muscle artifact and 5 seconds after that, 5 Hz rhythmic activity could be seen centrally, with a bias to the left. There was also prominent, high voltage 2 to 4 Hz rhythmic activity noted at FP1, F7 and T1, intermixed with eye movement artifact. After another 30 seconds, there was rhythmic 3 Hz activity in the left hemisphere, maximal in the temporal region, but with a continued prominent frontal component as well. Ictal activity then spread more diffusely into the right hemisphere, slowed to 2 Hz rhythmic activity and superimposed clonus obscured much of the EEG. The seizure ended at 03:08:05 and was followed by diffuse voltage suppression. Two minutes later, he pulled off all wires and the nurse unplugged the headbox from the machine in anticipation of the patient needing to leave the room in his post-ictal confusion, so no further video was available. Clinically, the patient was asleep on his back with his head to the right side at the onset of the seizure. 3 seconds after the onset of the seizure, he began moving around in bed, rolled to his right side then back to his back, but he was covered with a blanket including having a blanket wrapped around his head. Forty seconds after the seizure onset, he began moving his legs independently and his right hand was fisted. He then developed yelling, clonic vocalizations and his head deviated toward the right as the ictal activity spread bilaterally. Clonic head movements were seen and once blankets were removed, independent, asynchronous clonic movements of the arms and legs were noted. Both arms remained flexed across the abdomen and the legs were extended. Toward the end of the seizure, the right arm activity ceased prior to the left arm by a few seconds and there was persistent left facial clonus with drooling for another 3 seconds before the ictal activity abruptyl ended. In the immediate post-ictal period that was observed, the patient began pulling at his clothing with eyes open, but not responsive to the nurse's voice. He then sat up and exhibited very agitated movement, rolling around in bed, trying to get out of bed multiple times, flipping over on his stomach then getting onto his hands and knees and then kneeling on the bed. He continued moving around continuously , then pulled his shirt over his head and removed all of his wires. The recording ended at this point. #03 02/03: No patient events, no seizures #04 02/04: The patient experienced a seizure at 10:27, which occurred while he was awake. He was listening to his at the onset of the seizure. The first noted change was low to moderate amplitude 5 to 6 Hz activity maximal at T1 and F7. Muscle artifact somewhat obscured the mid-temporal leads. After 20 seconds, this began to slow to rhythmic delta activity and transitioned to spiking 2 Hz activity diffusely represented in the left hemisphere but remaining maximal at T3. Frequent, intermittent muscle artifact then partially obscured the background until the seizure abruptly terminated after 50 seconds. There was some ictal tachycardia noted on telemetry (into the low 100s) but the EKG lead on the EEG had a poor signal. Clinically, at the onset of the seizure he was still and not speaking. 20 seconds after the electrical onset, he exhibited oral automatisms, which alerted his to the seizure and she pressed the event button. He put the nurse call cannon down with his left hand, which he'd been holding in his right hand. He made some semi-purposeful movements including flexing his left leg up and holding onto the knee with his left hand. His right arm is motionless during the seizure but it is difficult to see because of the camera angle. After the seizure he begins moving his right arm, then moves around slightly agitated in bed and sits forward. He was brief, repetitive humming vocalizations and reaches up and touches his head with his right hand. He moves both upper extremities equally. One minute after the seizure ends he is able to state his first name but is not able to follow commands to show 2 fingers or raise his arms. He does not remember a recall phrase given to him in the post- ictal period though he was able to register it. He becomes diaphoretic. Two minutes later he is able to hold up both arms to command but still cannot show 2 fingers. - Impression Impression: This is an abnormal long-term video EEG session. The patient experienced 2 seizures, the first of which evolved to bilateral convulsive activity. Electrographically, the first seizure began with a rhythmic delta pattern maximal in the left temporal region while the second seizure began with a theta pattern maximal in the left frontotemporal region, then developed into a rhythmic delta pattern. The first seizure began out of sleep and he exhibited restless movements before the ictal activity spread to both hemispheres and he developed bilateral, asynchronous clonus and forced head version to the right. In the post-ictal period, he exhibits extreme agitation, moving all over the bed, getting onto his hands and knees, getting in and out of bed and finally pulling his shirt off and the EEG leads. The second seizure occurred while he was awake and the primary manifestation was oral automatisms followed by diaphoresis and very mild agitated movements. In the post-ictal period he was not able to follow commands or remember a recall phrase. The interictal EEG is notable for polymorphic slowing in the left temporal region and epileptiform discharges primarily during sleep and rarely during waking, also in the left temporal region. In summary, these findings are supportive of focal epilepsy arising from the left hemisphere and most likely from the left temporal region, but may be neocortical in origin given the initial ictal pattern seen with the first seizure.
[2018-02-02] MEDS ORDERED: Lacosamide TAB* 100 MG TAB PO ONE ×2 (10:14→21:00)
--- NOTE | 2018-02-02 10:20 | PN ---
Epilepsy Service Progress Note Date of Service: 02/02/18 - Subjective No overnight events. Patient slept well. No complaints or questions. - Medications Active Medications: Acetaminophen (Tylenol Tab*) 650 mg PO Q6H PRN PRN Reason: PAIN Diphenhydramine HCl (Benadryl Po*) 25 mg PO Q6H PRN PRN Reason: ITCHING Divalproex Sodium (Depakote Dr Tab(*)) 750 mg PO QAM [facility] Divalproex Sodium (Depakote Dr Tab(*)) 1,000 mg PO 2100 [facility] Last Admin: 02/01/18 21:10 Dose: 1,000 mg Lacosamide (Vimpat Tab*) 150 mg PO QAM [facility] Lacosamide (Vimpat Tab*) 200 mg PO 2100 [facility] Last Admin: 02/01/18 21:10 Dose: 200 mg Lorazepam (Ativan Inj*) 1 mg IV PUSH ONCE PRN PRN Reason: ANXIETY Lorazepam (Ativan Inj*) 1 mg .SEE ORDER Q8H PRN PRN Reason: Generalized Tonic Clonic Seizu Pto: Hemp Extract (Oil) 1 admin PO 0900,1800 [facility] Last Admin: 02/01/18 21:09 Dose: 1 admin Ondansetron HCl (Zofran Inj*) 4 mg IV Q6H PRN PRN Reason: NAUSEA EMU Diagnostics - Diagnostic Most Recent Vital Signs: Vital Signs: Temp Pulse Resp BP Pulse Ox 98.6 F 62 18 122/78 100 02/01/18 20:23 02/01/18 20:30 02/01/18 20:23 02/01/18 20:23 02/01/18 20:23 Interim video-EEG long-term monitoring report: #02/01: Background showed normal organization with PDR 9. During sleep, there were occasional epileptiform discharges in the left temporal region, maximal at T3/T7 with a field to F7, T1/FT9. No seizures, no patient events. EMU Exam - Exam Physical/Neurological Exam: Physical Exam: General: Well appearing in no acute distress. MSK: no extremity deformities Derm: no rashes or lesions on visible skin Neurological Exam: Mental Status: Awake and alert. Oriented to person, place, and time. Fluent. Comprehension intact. Affect appropriate. Cranial Nerves: Visual tucker full to confrontation. Versions were full and without nystagmus. Facial musculature and sensation were symmetric. Hearing grossly intact to voice. Palate was upgoing bilaterally. Tongue was midline. Shoulder shrug was symmetric. Motor: Bulk, tone, and strength were normal throughout. Pronator drift was absent. There were no abnormal movements/no tremor. Sensory: Sensation to light touch intact. Romberg was deferred. Coordination: Finger to nose and heel to hernandez were intact. Reflexes: not tested. Gait: Narrow based and normal. 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 He can often get agitated in the post-ictal period after a convulsion. He is experiencing seizures on a monthly basis, typically several times per month, and they have a tendency to cluster when he does experience them. He was previously evaluated for surgical candidacy and it was felt that he would need additional imaging (interictal PET and possibly ictal SPECT) as well as intracranial monitoring if he wished to pursue a surgical option. He now wishes to reconsider a surgical option and LTM is being repeated to ensure no changes have occurred which would preclude him from further surgical work up, such as independent bitemporal seizures. No typical events recorded yet. Plan: * Continue intermediate card tender video EEG monitoring to capture typical episodes * Seizure precautions * lorazepam 1mg IV prn GTC, may be repeated in 3 minutes if needed for agitation after GTC * continue home dose Depakote 750mg QAM and 1000mg QPM * plan to further reduce Vimpat to 100mg tonight, 75mg tomorrow AM and then 50mg tomorrow night, then d/c * EKG to be done due to pt taking Vimpat * nursing aware that pt could be unhooked from Natus machine temporarily if needed in post-ictal period
[2018-02-02] MEDS ORDERED: LaCOSAMide TAB* 150 MG TAB PO ONE (10:22)
[2018-02-02] MEDS ORDERED: LaCOSAMide TAB* 150 MG TAB PO SCH (10:23)
[2018-02-02] MEDS: [UNRECOGNIZED DRUG - OTHER] PO SCH ×3 (10:26→20:12)
[2018-02-02] MEDS: Divalproex DR TAB(*) 250 MG PO SCH (10:26)
--- NOTE | 2018-02-02 10:29 | PN ---
Subjective Date of Service: 02/02/18 Interval History: Pt is feeling well. No overnight events. No issues with pain, SOB or bowel/ bladder. He states he uses CBD oil BID. Pt is currently awaiting seizure activity and hopes to "get this over with as soon as possible." Objective Active Medications: Acetaminophen (Tylenol Tab*) 650 mg PO Q6H PRN PRN Reason: PAIN Diphenhydramine HCl (Benadryl Po*) 25 mg PO Q6H PRN PRN Reason: ITCHING Divalproex Sodium (Depakote Dr Tab(*)) 750 mg PO QAM [facility] Divalproex Sodium (Depakote Dr Tab(*)) 1,000 mg PO 2100 [facility] Last Admin: 02/01/18 21:10 Dose: 1,000 mg Lacosamide (Vimpat Tab*) 150 mg PO QAM [facility] Lacosamide (Vimpat Tab*) 200 mg PO 2100 [facility] Last Admin: 02/01/18 21:10 Dose: 200 mg Lorazepam (Ativan Inj*) 1 mg IV PUSH ONCE PRN PRN Reason: ANXIETY Lorazepam (Ativan Inj*) 1 mg .SEE ORDER Q8H PRN PRN Reason: Generalized Tonic Clonic Seizu Pto: Hemp Extract (Oil) 1 admin PO 0900,1800 [facility] Last Admin: 02/01/18 21:09 Dose: 1 admin Ondansetron HCl (Zofran Inj*) 4 mg IV Q6H PRN PRN Reason: NAUSEA Oxygen Devices in Use Now: None Appearance: Middle aged male sitting on edge of the bed, NAD Eyes: No Scleral Icterus Ears/Nose/Mouth/Throat: Mucous Membranes Moist Respiratory: Symmetrical Chest Expansion and Respiratory Effort, Clear to Auscultation Cardiovascular: NL Sounds; No Murmurs; No JVD, RRR, No Edema Abdominal: NL Sounds; No Tenderness; No Distention Extremities: No Clubbing, Cyanosis Skin: No Nodules or Sclerosis Neurological: Alert and Oriented x 3 Assess/Plan/Problems-Billing Mr Hidalgo is a 47 yo M who has a h/o focal epiliepsy who 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 - Patient Problems (1) Focal epilepsy Current Visit: Yes Status: Acute Comment: The patient has not had any events on EEG yet. Vimpat dose to be reduced further; 100mg tonight and 75mg tomorrow AM then 50mg tomorrow evening then stop. He will continue on his usual dose of depakote and CBD oil. IV ativan available for GTC. Pt frequently will become agitated following a generalized convulsion. Will try to reduce pt's agitation by administering ativan as soon as a generalized convulsion occurs. (2) DVT prophylaxis Current Visit: Yes Status: Acute Code(s): [id number] - SNOMED Code(s): 192281127 Comment: ambulation, SCDs if pt agrees (3) Full code status Current Visit: Yes Status: Acute Code(s): Z78.9 - OTHER SPECIFIED HEALTH STATUS SNOMED Code(s): 612738010
[2018-02-02] MEDS: Divalproex DR TAB(*) 500 MG PO SCH (20:10)
[2018-02-03] MEDS: LORazepam INJ* 2 MG/ML 1 ML VIAL IV PUSH PRN ×2 (03:10→03:20)
--- NOTE | 2018-02-03 04:41 | PN ---
Progress Note - Progress Note Date of Service: 02/03/18 Note: Nursing & housekeeping director called reporting grand mal seizure s/p 2mg IV lorazepam w/ patient currently post-ictal & agitated per his typical. Unable to obtain vitals. Upon arrival, Mr Hidalgo is a 47YO black male writhing naked in his bed in moderate respiratory distress with froth at the mouth. He does not respond to questions or follow requests. Lungs are coarse R>L w/ RR in the 30s, an saO2 was finally reliably obtained reading in the mid-80s, positive supra- clavicular retractions and abdominal breathing. CV: RRR rate 130s. Abdomen: soft , non-distended, no apparent clinical tenderness. Extremities: moves x4, cool. Integument: diaphoretic. He was placed on 15L oxymask and saO2 joslyn into the high 90s. CXR: RML infiltrate. After monitoring him at the bedside for ~ 15minutes, he becalm more calm, but still was not following requests or responding to questions. His vital signs improved with his HR decreasing into the 100-110s, saO2 remained stable in the 90s with titration of supplemental oxygen down to 2L. Case reviewed with Monika Black MD. Assessment: plan grand mal seizure with atypical post-ictal period (although typical for patient) : s/p 2mg IV lorazepam : continue to monitor closely : nursing to call for further concerns Reassessment 02/03/2018 0445 Patient has calmed considerably. Can state his name & squeezes fingers. RR remains elevated in the mid-20s. saO2 remains good in the 90s on 2L. Continue to monitor in EMU. Reassessment 02/03/2018 0545 Mr Hidalgo is now AA&O to PPS. He does not recall the events of the evening. RR is now high teens w/ saO2 91-92%. CV rate is low 100s. He denies complaints. After further consideration, my recommendation is for transfer to the ICU since 1) he has an aspiration pneumonitis from this episode, 2) it has taken him 2.5 hours to fully clear his mentation, 3) further seizures may occur or be needed for surgical clearance, & 4) should another event occur with aspiration it could be more severe making the ICU [the only other hospital location monitoring is possibly] the safest location for the patient. I discussed these concerns with Monika Black MD neurology who agreed.
[2018-02-03] MEDS ORDERED: LORazepam INJ* 2 MG/ML 1 ML VIAL IV PUSH PRN (06:25)
--- NOTE | 2018-02-03 07:25 | PN ---
Subjective Date of Service: 02/03/18 Interval History: Events from overnight are noted. The patient has been moved to the ICU. He is feeling well. His mentation is back to how it was yesterday when I saw him. He denies any SOB. He states he went to sleep around 2am and does not recall the onset of his seizure or any other events from early this AM. Objective Active Medications: Acetaminophen (Tylenol Tab*) 650 mg PO Q6H PRN PRN Reason: PAIN Diphenhydramine HCl (Benadryl Po*) 25 mg PO Q6H PRN PRN Reason: ITCHING Divalproex Sodium (Depakote Dr Tab(*)) 750 mg PO QAM [facility] Last Admin: 02/02/18 10:26 Dose: 750 mg Divalproex Sodium (Depakote Dr Tab(*)) 1,000 mg PO 2100 [facility] Last Admin: 02/02/18 20:10 Dose: 1,000 mg Lacosamide (Vimpat Tab*) 50 mg PO BEDTIME ONE Stop: 02/03/18 21:01 Lacosamide (Vimpat Tab*) 75 mg PO 0900 ONE Stop: 02/03/18 09:01 Lorazepam (Ativan Inj*) 1 mg IV PUSH ONCE PRN PRN Reason: ANXIETY Last Admin: 02/03/18 03:20 Dose: 1 mg Lorazepam (Ativan Inj*) 1 mg IV PUSH Q8H PRN PRN Reason: Generalized Tonic Clonic Seizu Pto: Hemp Extract (Oil) 1 admin PO 0900,2100 [facility] Last Admin: 02/02/18 20:11 Dose: 1 admin Ondansetron HCl (Zofran Inj*) 4 mg IV Q6H PRN PRN Reason: NAUSEA Vital Signs - 8 hr 02/03/18 02/03/18 02/03/18 03:10 03:20 03:30 Temperature Pulse Rate 141 Respiratory 40 40 Rate Blood Pressure 170/90 (mmHg) O2 Sat by Pulse Oximetry 02/03/18 02/03/18 02/03/18 03:40 03:45 04:00 Temperature Pulse Rate Respiratory Rate Blood Pressure (mmHg) O2 Sat by Pulse 71 99 80 Oximetry 02/03/18 02/03/18 02/03/18 04:05 04:17 05:22 Temperature Pulse Rate 102 100 Respiratory Rate Blood Pressure (mmHg) O2 Sat by Pulse 93 91 97 Oximetry 02/03/18 02/03/18 02/03/18 06:55 07:02 07:17 Temperature 97.7 F 98.9 F Pulse Rate 87 94 Respiratory 16 18 Rate Blood Pressure 100/78 89/63 (mmHg) O2 Sat by Pulse 93 97 Oximetry Oxygen Devices in Use Now: Nasal Cannula - 2L Appearance: Middle aged male lying in bed, NAD Eyes: No Scleral Icterus Ears/Nose/Mouth/Throat: Mucous Membranes Moist Respiratory: Symmetrical Chest Expansion and Respiratory Effort, Clear to Auscultation - R>L lower lobe crackles Cardiovascular: NL Sounds; No Murmurs; No JVD, RRR, No Edema Abdominal: NL Sounds; No Tenderness; No Distention Extremities: No Clubbing, Cyanosis Skin: No Nodules or Sclerosis Neurological: Alert and Oriented x 3 Assess/Plan/Problems-Billing Mr Hidalgo is a 47 yo M who has a h/o focal epiliepsy who underwent skilled nursing monitoring in 2014 who now returns for repeat LTM for characterization of he seizures and to ensure there have been no changes prior to pursuing a surgical option. - Patient Problems (1) Focal epilepsy Current Visit: Yes Status: Acute Comment: By description the patient had a seizure with secondary generalization. He received 2 mg IV ativan. It took a couple hours for the patient's mentation to normalize. It appears he developed an aspiration pneumonitis. RML infiltrate is seen on CXR. The patient was moved to the ICU for further monitoring as if he were to develop another seizure with secondary generalization and aspirate again he could require further respiratory support. Dr. Black was notified overnight. Await further recommendations from Dr. Black-the patient is currently scheduled to receive his usual dose of depakote and CBD oil and only 50mg of lacosamide. (2) DVT prophylaxis Current Visit: Yes Status: Acute Code(s): [id number] - SNOMED Code(s): 394836253 Comment: ambulation, SCDs if pt agrees (3) Full code status Current Visit: Yes Status: Acute Code(s): Z78.9 - OTHER SPECIFIED HEALTH STATUS SNOMED Code(s): 809875944
--- NOTE | 2018-02-03 08:08 | RAD ---
INDICATION: Seizure COMPARISON: Chest x-ray November 2013 TECHNIQUE: Single AP portable view of the chest was obtained. FINDINGS: Image quality is compromised due to the relative inferiority of a portable chest x-ray. The heart and mediastinum exhibit normal size and contour. There are patchy densities overlying the bilateral lungs. There is a linear density at the mid-level right lung morphologically most consistent with atelectasis. There is bibasilar costophrenic angle blunting. Visualized bones are normal for the patient's age. IMPRESSION: Interval appearance of patchy densities bilaterally could be due to pulmonary edema, drug reaction or pneumonia. There are small bibasilar pleural effusions.
[2018-02-03] MEDS ORDERED: Lacosamide TAB* 50 MG TAB PO ONE ×2 (09:00→21:00)
[2018-02-03] MEDS: [UNRECOGNIZED DRUG - OTHER] PO SCH ×2 (10:17→20:06)
[2018-02-03] MEDS: Divalproex DR TAB(*) 250 MG PO SCH (10:17)
--- NOTE | 2018-02-03 10:19 | PN ---
Epilepsy Service Progress Note Date of Service: 02/03/18 - Subjective Patient had a seizure just after 3am which began as a focal seizure, then quickly secondarily generalized. The entire event lasted just under 2 minutes. He became very agitated in the post-ictal period, as is typical for him. He removed his clothing, climbed in and out of bed, moved all over the bed in different positions and then pulled all of his wires off. A response team was called. Security was involved. Dr Gunter was notified, came to assess the patient and found him to have a peripheral O2 sat in the 80s, which he felt was reliable, and after applying O2 initially high flow it came up into the 90s. There was concern for a RML infiltrate and given his intense post-ictal state with the possibility of further seizures, the decision was made to move him to ICU where he could continue to be monitored but in a setting where more equipment would be available if needed for respiratory support. Today, Will is sleepy and does not remember anything about the event. He only fell asleep about 5 minutes before the event occurred. He was not intentionally sleep depriving himself, just had a hard time falling asleep. The event and care was discussed with his as well. - Medications Active Medications: Acetaminophen (Tylenol Tab*) 650 mg PO Q6H PRN PRN Reason: PAIN Diphenhydramine HCl (Benadryl Po*) 25 mg PO Q6H PRN PRN Reason: ITCHING Divalproex Sodium (Depakote Dr Tab(*)) 750 mg PO QAM [facility] Last Admin: 02/02/18 10:26 Dose: 750 mg Divalproex Sodium (Depakote Dr Tab(*)) 1,000 mg PO 2100 [facility] Last Admin: 02/02/18 20:10 Dose: 1,000 mg Lacosamide (Vimpat Tab*) 50 mg PO BEDTIME ONE Stop: 02/03/18 21:01 Lorazepam (Ativan Inj*) 1 mg IV PUSH ONCE PRN PRN Reason: ANXIETY Last Admin: 02/03/18 03:20 Dose: 1 mg Lorazepam (Ativan Inj*) 1 mg IV PUSH Q8H PRN PRN Reason: Generalized Tonic Clonic Seizu Pto: Hemp Extract (Oil) 1 admin PO 0900,2100 [facility] Last Admin: 02/02/18 20:11 Dose: 1 admin Ondansetron HCl (Zofran Inj*) 4 mg IV Q6H PRN PRN Reason: NAUSEA EMU Diagnostics - Diagnostic Most Recent Vital Signs: Vital Signs: Temp Pulse Resp BP Pulse Ox 98.9 F 80 23 105/81 96 02/03/18 07:17 02/03/18 08:15 02/03/18 08:15 02/03/18 08:15 02/03/18 08:15 Interim video-EEG long-term monitoring report: #01 02/01: Background showed normal organization with PDR 9. During sleep, there were occasional epileptiform discharges in the left temporal region, maximal at T3/T7 with a field to F7, T1/FT9. No seizures, no patient events. #02 02/02: The patient experienced a seizure out of stage 2 sleep at 03:06:15 on 02/03. He had only been asleep for 5 minutes. This began with semi-rhythmic 2 to 3 Hz sharp wave discharges over the left temporal region, maximal at T3 but also well represented at T1, F7, A1 and within half a second also spread to the centroparietal region on the left. In the next second, activity was noted in the right frontal region as well at F4 and FP2. 3 seconds after the onset, the EEG was obscured by muscle artifact and 5 seconds after that, 5 Hz rhythmic activity could be seen centrally, with a bias to the left. There was also prominent, high voltage 2 to 4 Hz rhythmic activity noted at FP1, F7 and T1, intermixed with eye movement artifact. After another 30 seconds, there was rhythmic 3 Hz activity in the left hemisphere, maximal in the temporal region, but with a continued prominent frontal component as well. Ictal activity then spread more diffusely into the right hemisphere, slowed to 2 Hz rhythmic activity and superimposed clonus obscured much of the EEG. The seizure ended at 03:08:05 and was followed by diffuse voltage suppression. Two minutes later, he pulled off all wires and the nurse unplugged the headbox from the machine in anticipation of the patient needing to leave the room in his post-ictal confusion, so no further video was available. Clinically, the patient was asleep on his back with his head to the right side at the onset of the seizure. 3 seconds after the onset of the seizure, he began moving around in bed, rolled to his right side then back to his back, but he was covered with a blanket including having a blanket wrapped around his head. Forty seconds after the seizure onset, he began moving his legs independently and his right hand was fisted. He then developed yelling, clonic vocalizations and his head deviated toward the right as the ictal activity spread bilaterally. Clonic head movements were seen and once blankets were removed, independent, asynchronous clonic movements of the arms and legs were noted. Both arms remained flexed across the abdomen and the legs were extended. Toward the end of the seizure, the right arm activity ceased prior to the left arm by a few seconds and there was persistent left facial clonus with drooling for another 3 seconds before the ictal activity abruptyl ended. In the immediate post-ictal period that was observed, the patient began pulling at his clothing with eyes open, but not responsive to the nurse's voice. He then sat up and exhibited very agitated movement, rolling around in bed, trying to get out of bed multiple times, flipping over on his stomach then getting onto his hands and knees and then kneeling on the bed. He continued moving around continuously , then pulled his shirt over his head and removed all of his wires. The recording ended at this point. Otherwise, the background continued to demonstrate similar findings to the previous day's recording. Radiology Impressions: CXR: patchy bilateral infiltrates, ddx: pulmonary edema, drug reaction, pneumonia EMU Exam - Exam Physical/Neurological Exam: Physical Exam: General: Asleep in ICU, able to be roused with light tactile stimulation Heart: RRR Lungs: CTAB. No crackles heard on my exam. HEENT: no oral trauma noted MSK: no extremity deformities Derm: no rashes or lesions on visible skin Neurological Exam: Mental Status: Awake and alert. Oriented to person, place, and time. Fluent. Comprehension intact. Affect appropriate. Cranial Nerves: Visual tucker full to confrontation. Versions were full and without nystagmus. Facial musculature and sensation were symmetric. Hearing grossly intact to voice. Palate was upgoing bilaterally. Tongue was midline. Shoulder shrug was symmetric. Motor: Bulk, tone, and strength were normal throughout. Pronator drift was absent. There were no abnormal movements/no tremor. Sensory: Sensation to light touch intact. Romberg was deferred. Coordination: Finger to nose intact. Reflexes: not tested. 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 He can often get agitated in the post-ictal period after a convulsion. He is experiencing seizures on a monthly basis, typically several times per month, and they have a tendency to cluster when he does experience them. He was previously evaluated for surgical candidacy and it was felt that he would need additional imaging (interictal PET and possibly ictal SPECT) as well as intracranial monitoring if he wished to pursue a surgical option. He now wishes to reconsider a surgical option and LTM is being repeated to ensure no changes have occurred which would preclude him from further surgical work up, such as independent bitemporal seizures. One typical event recorded with secondary generalization followed by intense post-ictal agitation which is common for him. He is sleepy but otherwise at baseline today. The EEG showed initial rhythmic delta activity in the left hemisphere, maximal in the temporal region, with rapid spread within the left hemisphere and into the right frontal region, followed by secondary generalization. He is now requiring a bit of O2 by nasal cannula but denies SOB. He may have experienced some aspiration last night and his reports it is common for his RR to increase significantly in the post-ictal period. O2 to be weaned as able. The EEG above appeared similar to 2015 and given the potential risks to the patient of inducing further seizures, I do not think we need to capture additional seizures to answer the question at hand (however, he is likely to experience additional seizures in the next 24 hours because he has a tendency to cluster). Will restart home dose Vimpat, continue to monitor in ICU. Plan: * Continue long-term video EEG monitoring to capture typical episodes * Seizure precautions * lorazepam 1mg IV prn GTC, may be repeated in 3 minutes if needed for agitation after GTC * continue home dose Depakote 750mg QAM and 1000mg QPM * Increase Vimpat to home dose of 250mg QAM and 350mg QPM. Supplement this AM's dose up to 250mg as needed. * EKG reviewed, bradycardia but no SC prolongation noted. * again, pt could be unhooked from Natus machine temporarily if needed in a post -ictal period * if no convulsions overnight with significant post-ictal agitation, plan to d/ c tomorrow * Pt will need to be discussed in PR[facility]. Briefly discussed my ongoing concerns with about safety of intracranial monitoring. Would consider whether VNS could be a measure to reduce GTCs or intensity of post-ictal period as a way to make intracranial monitoring safer.
[2018-02-03] MEDS ORDERED: Lacosamide TAB* 50 MG TAB PO SCH ×2 (11:00→18:00)
[2018-02-03] MEDS: Lacosamide TAB* 100 MG TAB PO SCH (12:11)
[2018-02-03] MEDS: LaCOSAMide TAB* 150 MG TAB PO SCH ×2 (12:11→17:58)
[2018-02-03 16:26] LABS: Hematocrit 42 % (42-52); Hemoglobin 14.3 g/dl (14.0-18.0); Mean Corpuscular HGB Conc 34 g/dl (31-36); Mean Corpuscular Hemoglobin 28 pg (27-31); Mean Corpuscular Volume 84 fL (80-94); Mean Platelet Volume 8.8 um3 (7.4-10.4); Platelet Count 232 10^3/ul (150-450); Red Blood Count 5.07 10^6/ul (4.00-5.40); Red Cell Distribution Width 17 % (10.5-15); White Blood Count 6.9 10^3/ul (3.5-10.8)
[2018-02-03 16:33] LABS: EGFR Non-African American 84.6 (>60)
[2018-02-03] MEDS ORDERED: Lacosamide TAB* 100 MG TAB PO SCH (18:00)
[2018-02-03] MEDS: Divalproex DR TAB(*) 500 MG PO SCH (20:05)
[2018-02-04] MEDS: Lacosamide TAB* 100 MG TAB PO SCH (08:48)
[2018-02-04] MEDS: LaCOSAMide TAB* 150 MG TAB PO SCH (08:49)
[2018-02-04] MEDS: [UNRECOGNIZED DRUG - OTHER] PO SCH (08:49)
[2018-02-04] MEDS: Divalproex DR TAB(*) 250 MG PO SCH (08:50)
[2018-02-04] MEDS ORDERED: Lacosamide TAB* 100 MG TAB PO SCH (09:00)
[2018-02-04] MEDS: LORazepam INJ* 2 MG/ML 1 ML VIAL IV PUSH PRN (10:31)
--- NOTE | 2018-02-04 10:55 | PN ---
Epilepsy Service Progress Note Date of Service: 02/04/18 - Subjective He had a fever yesterday, which self-resolved, did not take antipyretic. Patient did not have any further seizures overnight, but then after rounding on patient I was called back to the room just after 10:30 for a focal seizure. He was slightly agitated, not able to follow commands, not able to speak normally and could not remember a recall phrase. I advised 1mg lorazepam IV be given after the event since he tends to cluster and we want to prevent another GTC. Prior to his focal seizure, I reviewed the EEG and video of his previous seizure with him and his , at his request. - Medications Active Medications: Acetaminophen (Tylenol Tab*) 650 mg PO Q6H PRN PRN Reason: PAIN Diphenhydramine HCl (Benadryl Po*) 25 mg PO Q6H PRN PRN Reason: ITCHING Divalproex Sodium (Depakote Dr Tab(*)) 750 mg PO QAM [facility] Last Admin: 02/04/18 08:50 Dose: 750 mg Divalproex Sodium (Depakote Dr Tab(*)) 1,000 mg PO 2100 [facility] Last Admin: 02/03/18 20:05 Dose: 1,000 mg Lacosamide (Vimpat) 150 mg PO 0900,1800 [facility] Last Admin: 02/04/18 08:49 Dose: 150 mg Lacosamide (Vimpat Tab*) 200 mg PO QPM [facility] Last Admin: 02/03/18 17:58 Dose: 200 mg Lacosamide (Vimpat Tab*) 100 mg PO DAILY [facility] Last Admin: 02/04/18 08:48 Dose: 100 mg Lorazepam (Ativan Inj*) 1 mg IV PUSH ONCE PRN PRN Reason: ANXIETY Last Admin: 02/04/18 10:31 Dose: 1 mg Lorazepam (Ativan Inj*) 1 mg IV PUSH Q8H PRN PRN Reason: Generalized Tonic Clonic Seizu Pto: Hemp Extract (Oil) 1 admin PO 0900,2100 [facility] Last Admin: 02/04/18 08:49 Dose: 1 admin Ondansetron HCl (Zofran Inj*) 4 mg IV Q6H PRN PRN Reason: NAUSEA EMU Diagnostics - Diagnostic Most Recent Vital Signs: Vital Signs: Temp Pulse Resp BP Pulse Ox 98.7 F 97 16 117/94 97 02/04/18 08:00 02/04/18 10:02 02/04/18 10:31 02/04/18 10:02 02/04/18 10:02 Lab Results: Laboratory Tests 02/03/18 02/03/18 16:03 16:03 WBC 6.9 RBC 5.07 Hgb 14.3 Hct 42 MCV 84 MCH 28 MCHC 34 RDW 17 H Plt Count 232 MPV 8.8 Sodium 137 Potassium 4.2 Chloride 104 Carbon Dioxide 22 Anion Gap 11 BUN 14 Creatinine 0.95 Est GFR ( Amer) 102.4 Est GFR (Non-Af Amer) 84.6 BUN/Creatinine Ratio 14.7 Glucose 101 H Calcium 9.4 Interim video-EEG long-term monitoring report: #01 02/01: Background showed normal organization with PDR 9. During sleep, there were occasional epileptiform discharges in the left temporal region, maximal at T3/T7 with a field to F7, T1/FT9. No seizures, no patient events. #02 02/02: The patient experienced a seizure out of stage 2 sleep at 03:06:15 on 02/03. He had only been asleep for 5 minutes. This began with semi-rhythmic 2 to 3 Hz sharp wave discharges over the left temporal region, maximal at T3 but also well represented at T1, F7, A1 and within half a second also spread to the centroparietal region on the left. In the next second, activity was noted in the right frontal region as well at F4 and FP2. 3 seconds after the onset, the EEG was obscured by muscle artifact and 5 seconds after that, 5 Hz rhythmic activity could be seen centrally, with a bias to the left. There was also prominent, high voltage 2 to 4 Hz rhythmic activity noted at FP1, F7 and T1, intermixed with eye movement artifact. After another 30 seconds, there was rhythmic 3 Hz activity in the left hemisphere, maximal in the temporal region, but with a continued prominent frontal component as well. Ictal activity then spread more diffusely into the right hemisphere, slowed to 2 Hz rhythmic activity and superimposed clonus obscured much of the EEG. The seizure ended at 03:08:05 and was followed by diffuse voltage suppression. Two minutes later, he pulled off all wires and the nurse unplugged the headbox from the machine in anticipation of the patient needing to leave the room in his post-ictal confusion, so no further video was available. Clinically, the patient was asleep on his back with his head to the right side at the onset of the seizure. 3 seconds after the onset of the seizure, he began moving around in bed, rolled to his right side then back to his back, but he was covered with a blanket including having a blanket wrapped around his head. Forty seconds after the seizure onset, he began moving his legs independently and his right hand was fisted. He then developed yelling, clonic vocalizations and his head deviated toward the right as the ictal activity spread bilaterally. Clonic head movements were seen and once blankets were removed, independent, asynchronous clonic movements of the arms and legs were noted. Both arms remained flexed across the abdomen and the legs were extended. Toward the end of the seizure, the right arm activity ceased prior to the left arm by a few seconds and there was persistent left facial clonus with drooling for another 3 seconds before the ictal activity abruptyl ended. In the immediate post-ictal period that was observed, the patient began pulling at his clothing with eyes open, but not responsive to the nurse's voice. He then sat up and exhibited very agitated movement, rolling around in bed, trying to get out of bed multiple times, flipping over on his stomach then getting onto his hands and knees and then kneeling on the bed. He continued moving around continuously , then pulled his shirt over his head and removed all of his wires. The recording ended at this point. Otherwise, the background continued to demonstrate similar findings to the previous day's recording. #03 02/03: No further seizures. Background as stated above with epileptiform discharges during sleep maximal at T3/T7 with a field to F7, T1/FT9. #04 02/04: to be reviewed EMU Exam - Exam Physical/Neurological Exam: Physical Exam: General: awake, fully alert Heart: RRR Lungs: CTAB. No crackles. HEENT: no oral trauma noted MSK: no extremity deformities Derm: no rashes or lesions on visible skin Neurological Exam: Mental Status: Awake and alert. Oriented to person, place, and time. Fluent. Comprehension intact. Affect appropriate. Cranial Nerves: Visual tucker full to confrontation. Versions were full and without nystagmus. Facial musculature and sensation were symmetric. Hearing grossly intact to voice. Palate was upgoing bilaterally. Tongue was midline. Shoulder shrug was symmetric. Motor: Bulk, tone, and strength were normal throughout. Pronator drift was absent. There were no abnormal movements/no tremor. Sensory: Sensation to light touch intact. Romberg was deferred. Coordination: Finger to nose intact. Reflexes: not tested. Gait: not observed During seizure, patient was diaphoretic, slightly agitated (moving nurse call cannon, grabbing at seizure pads), eyes open, some intermittent humming vocalizations, not able to follow commands, no able to remember a recall phrase. 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 He can often get agitated in the post-ictal period after a convulsion. He is experiencing seizures on a monthly basis, typically several times per month, and they have a tendency to cluster when he does experience them. He was previously evaluated for surgical candidacy and it was felt that he would need additional imaging (interictal PET and possibly ictal SPECT) as well as intracranial monitoring if he wished to pursue a surgical option. He now wishes to reconsider a surgical option and LTM is being repeated to ensure no changes have occurred which would preclude him from further surgical work up, such as independent bitemporal seizures. One typical event recorded with secondary generalization followed by intense post-ictal agitation which is common for him. The EEG showed initial rhythmic delta activity in the left hemisphere, maximal in the temporal region, with rapid spread within the left hemisphere and into the right frontal region, followed by secondary generalization. He has recovered well from that seizure. Had a brief fever yesterday associated with chills which self-resolved, says he experiences similar at home. Now he's had an additional focal seizure, captured on EEG. Will review. Given lorazepam 1mg to try and prevent further seizures. still feels ok taking him home today and would prefer this, will return to ED if things escalate or he experiences a GTC. Will monitor for another 1 to 2 hours prior to d/c. Plan: * will d/c termite helper video EEG monitoring * Seizure precautions * lorazepam 1mg IV prn GTC, may be repeated in 3 minutes if needed for agitation after GTC * continue home dose Depakote 750mg QAM and 1000mg QPM and Vimpat 250mg QAM and 350mg QPM. * Pt will need to be discussed in [facility]. Again discussed my ongoing concerns about safety of intracranial monitoring. Would consider whether VNS could be a measure to reduce GTCs or intensity of post-ictal period as a way to make intracranial monitoring safer. Will likely need interictal PET, not sure if ictal SPECT would be helpful given rapid spread of ictal activity. * Plan to d/c later today as long as he remains stable * Pt to follow up with me in [place] in March, they will call for an appointment.
[2018-02-04 12:16] VITALS: BP 130/101
--- NOTE | 2018-02-05 03:42 | DS ---
CC: Zakia Henderson DO; Dr. Black * DISCHARGE SUMMARY: DATE OF ADMISSION: 02/01/18 DATE OF DISCHARGE: 02/04/18 PRIMARY CARE PROVIDER: Zakia Henderson DO. NEUROLOGIST: Dr. Black. PRINCIPAL DIAGNOSES: 1. Seizure disorder. 2. Severe postictal agitation. 3. Aspiration pneumonitis. DISCHARGE MEDICATIONS: 1. Depakote 750 mg p.o. q.a.m., 1000 mg p.o. q.p.m. 2. Vimpat 250 mg p.o. q.a.m., 350 mg p.o. q.p.m. 3. Clonazepam 0.5 mg p.o. once p.r.n. seizure, may repeat x1. 4. CBD oil twice daily. HOSPITAL COURSE: Mr. Hidalgo is a 47-year-old male who was admitted to the EMU on 02/01/18 for characterization and preop surgical EEG monitoring. The patient had his Vimpat dose tapered per Dr. Black's recommendations. On the hospitality job titles of 02/03/18, the patient had a focal seizure that quickly secondarily generalized. The patient received Ativan 1 mg IV x2 doses. Unfortunately, the patient has known history of significant postictal agitation. This was the case on the morning of 02/03/18. It also appeared that the patient likely aspirated as he developed significant hypoxia requiring 2 L of oxygen. Initially, chest x-ray shows right middle lobe infiltrate. Given the severity of his postictal agitation and concern for additional seizures, the patient was moved to intensive care unit for closer monitoring. The patient recovered ultimately from the postictal agitation. He was essentially back to his baseline by approximately 7 o'clock in the morning. The patient continued on EEG monitoring in the ICU. He was restarted on his usual doses of Vimpat. The patient had previously had long-term EEG monitoring in 2014 and his seizure that was captured on the hospitality job titles of 02/03/18 was similar to what was seen in 2015 and this was felt to be sufficient for the patient's presurgical evaluation. The patient was monitored again overnight from 02/03/18 into . No further seizure activity was noted until mid morning of 02/04/18 when he had a focal seizure. Dr. Black was present at the time of the seizure. She felt that he still could be discharged home as per the patient's . The patient's felt that she could manage him at home. Of note, on the afternoon of 02/03/18, the patient had a fever of 101.2. Labs were obtained given the probable aspiration. His white blood cell count was noted to be normal. His BMP was also noted to be normal. The patient and his have been instructed to monitor his temperature at home and if he starts having recurrent fevers, to contact his primary care provider to be evaluated for possible aspiration pneumonia. At this time, it is felt that he only has an aspiration pneumonitis. On the day of discharge, the patient is awake, alert and oriented, sitting up in bed, in no acute distress. His cardiac exam reveals normal S1, S2 with a regular rate and rhythm. His lungs are clear. His abdomen is soft, nontender, nondistended. He is alert, he is oriented. He is essentially at his baseline. FOLLOWUP CONCERNS: The patient is being discharged home today, 02/04/18. The patient's will monitor for any recurrent seizure activity as the patient does tend to cluster his seizures. If she has any concerns, he will be brought back to the emergency room and again, the patient and his have been instructed to monitor his temperature. The patient should follow up with his primary care provider in the next 4 to [address] Black as she directs. CONDITION ON DISCHARGE: Stable. DIET: Regular. TIME SPENT: Thirty five minutes was spent discharging this patient. [id number]/[facility] #: [id number] MTDD
== END 2018-02-04 12:30 | disposition home or self-care (01) | DRG 53 ==
LOC: EMU 14:16 → ICU 02-03 07:03
PROVIDERS: ADMIT Psychiatry & Neurology Neurology; ATTEND Hospitalist
PROC: 4A10X4Z Monitoring of Central Nervous Electrical Activity, External Approach (ICD-10-PCS; principal; 2018-02-01)
DX: G40.109 Localization-related (focal) (partial) symptomatic epilepsy and epileptic syndromes with simple partial seizures, not intractable, without status epilepticus (principal); J69.0 Pneumonitis due to inhalation of food and vomit; R45.1 Restlessness and agitation; R50.9 Fever, unspecified; Z91.018 Allergy to other foods; Z88.8 Allergy status to other drugs, medicaments and biological substances; Z72.89 Other problems related to lifestyle; Z98.52 Vasectomy status; Z82.0 Family history of epilepsy and other diseases of the nervous system
CPT/HCPCS: 36415; 71045; 80048; 85027; 93005; 95951; A9270-GY; J2060

== ENCOUNTER 2018-03-26 10:24 | Emergency (ER) | payer MEDICAID, OTHER ==
--- NOTE | 2018-03-26 11:36 | ED ---
Skin Complaint - HPI Summary HPI Summary: Patient is a 47-year-old male presenting to the ED with medial right foot ulceration measuring approximately 4 cm x 2.5 cm. Erythematous border with a yellow epithelial tissue center with black eschar overlying. He endorses worsening symptoms over the past 3 days and feels the area is somewhat healing, however has been taking a long time. He denies any diabetic history. Denies any smoking history. He endorses swelling to the medial foot and into the ankle , however denies any pain or swelling to the ipsilateral lower extremity otherwise. Symptoms began after having a pedicure. He states he has dealt with calluses in the past, which causes him to get pedicures. This has never happened to him before. He states he has been otherwise well, denies any fevers , sweats, chills. - History of Current Complaint Chief Complaint: EDRashSkinAbscess Time Seen by Provider: 03/26/18 11:00 Stated Complaint: SORE ON RT ANKLE Hx Obtained From: Patient Onset/Duration: Started Days Ago Skin Exposure Onset/Duration: Days Ago Timing: Constant Onset Severity: Mild Current Severity: Mild Pain Intensity: 6 Pain Scale Used: 0-10 Numeric Skin Location: Discrete - medial right ankle/foot Character: Swelling, Pain, Redness Aggravating Symptom(s): Nothing Alleviating Symptom(s): Nothing Associated Signs & Symptoms: Negative Related History: Trauma - Additional Pertinent History Primary Care Physician: JAZMIN - Allergy/Home Medications Allergies/Adverse Reactions: Allergies Allergy/AdvReac Type Severity Reaction Status Date / Time No Known Allergies Allergy Verified 03/26/18 11:11 PMH/Surg Hx/FS Hx/Imm Hx Previously Healthy: Yes Endocrine/Hematology History: Denies: Hx Diabetes Cardiovascular History: Reports: Other Cardiovascular Problems/Disorders - Recent cardiac workup, will f/u with stress test Denies: Hx Hypertension, Hx Pacemaker/ICD GI History: Reports: Other GI Disorders - right inguinal hernia History: Denies: Hx Renal Disease Sensory History: Denies: Hx Contacts or Glasses, Hx Hearing Aid Opthamlomology History: Denies: Hx Contacts or Glasses Neurological History: Reports: Hx Seizures - reports diagnosed 2010 Denies: Hx Developmental Delay Psychiatric History: Denies: Hx Panic Disorder - Surgical History Surgery Procedure, Year, and Place: wisdom teeth extraction in dental office. vasectomy done in dr anthony office Hx Anesthesia Reactions: No - Immunization History Hx Pertussis Vaccination: No Immunizations Up to Date: Yes Infectious Disease History: No Infectious Disease History: Denies: Traveled Outside the [place] in Last 30 Days - Family History Known Family History: Positive: Seizure Disorder - daughter, Other - Social History Occupation: Employed Full-time Lives: With Family Alcohol Use: Rare Alcohol Amount: 2 glasses beer per week Hx Substance Use: Yes Substance Use Type: Reports: Marijuana Substance Use Comment - Amount & Last Used: medical marijuana Hx Tobacco Use: No Smoking Status (MU): Never Smoked Tobacco Review of Systems Constitutional: Negative Negative: Fever, Chills, Skin Diaphoresis Cardiovascular: Negative Negative: Palpitations, Chest Pain Negative: Shortness Of Breath, Cough Negative: Abdominal Pain, Vomiting, Diarrhea, Nausea Genitourinary: Negative Positive: no symptoms reported, see HPI Negative: Arthralgia, Myalgia Positive: Rash All Other Systems Reviewed And Are Negative: Yes Physical Exam Triage Information Reviewed: Yes Vital Signs On Initial Exam: Initial Vitals Temp Pulse Resp BP Pulse Ox 98.4 F 78 18 114/80 97 03/26/18 10:45 03/26/18 10:45 03/26/18 10:45 03/26/18 10:45 03/26/18 10:45 Vital Signs Reviewed: Yes Appearance: Positive: Well-Appearing, Well-Nourished Skin: Positive: Warm, Skin Color Reflects Adequate Perfusion, Other - Erythematous base with yellow epithelialization tissue with Center black a sharp. Wound measures approximately 5 cm Neck: Positive: Supple, No Lymphadenopathy Respiratory/Lung Sounds: Positive: Clear to Auscultation, Breath Sounds Present Cardiovascular: Positive: RRR, Pulses are Symmetrical in both Upper and Lower Extremities Musculoskeletal: Positive: Normal, Strength/ROM Intact Neurological: Positive: Speech Normal Psychiatric: Positive: Normal, Affect/Mood Appropriate Diagnostics - Vital Signs Vital Signs Temp Pulse Resp BP Pulse Ox 03/26/18 10:45 98.4 F 78 18 114/80 97 - Laboratory Lab Statement: Any lab studies that have been ordered have been reviewed, and results considered in the medical decision making process. Course/Dx - Course Course Of Treatment: During the course of treatment, the patient is evaluated for right medial foot ulcer. Denies any history of PAD, PVD, smoking or diabetes. He developed a skin ulcer after getting a pedicure. Wound culture obtained and sent to lab. Foot x-ray obtained. No labs were drawn as patient remained afebrile and feeling otherwise well. He remains ambulatory, however with pain. On physical examination, there is a 4 cm x 2.5 cm ulceration with erythematous base with yellow epithelial tissue inside surrounding a black eschar. Swelling is noted to the medial side of the foot extending up into the ankle without signs of cellulitis. Pressure was removed with an 11 blade with white scraping. Underneath small amount of yellow drainage. This was cultured and sent to lab. Placed on Bactrim, however we will change antibiotic according to culture. - Diagnoses Provider Diagnoses: Skin ulceration Discharge - Sign-Out/Discharge Documenting (check all that apply): Patient Departure - Discharge Plan Condition: Stable Disposition: HOME Prescriptions: Sulfamethox/Trimethoprim DS* [Bactrim DS 800/160 TAB*] 1 tab PO BID #10 tab MDD 2 Patient Education Materials: Acute Wound Care (ED) Referrals: No Primary Care Phys,NOPCP [Primary Care Provider] - Additional Instructions: Bactrim twice daily 5 days Keep the area covered with antibiotic ointment during the daytime and keep it open to air for at least 5-6 hours during the day If symptoms worsen, return to the ED - Billing Disposition and Condition Condition: STABLE Disposition: Home
--- NOTE | 2018-03-26 12:23 | RAD ---
HISTORY: R foot swelling COMPARISONS: None VIEWS: 3 , Frontal, lateral, and oblique views of the right foot FINDINGS: BONE DENSITY: Normal. BONES: There is no displaced fracture. JOINTS: There is no arthropathy. ALIGNMENT: There is no dislocation. SOFT TISSUES: Unremarkable. OTHER FINDINGS: None. IMPRESSION: NO ACUTE OSSEOUS INJURY. IF SYMPTOMS PERSIST, RECOMMEND REPEAT IMAGING.
[2018-03-26 12:55] VITALS: BP 126/83
== END 2018-03-26 12:54 | disposition home or self-care (01) ==
LOC: ED 10:24
DX: L97.419 Non-pressure chronic ulcer of right heel and midfoot with unspecified severity (principal)
CPT/HCPCS: 87070; 87077; 87186; 87205; 87640; 87641; 99282

== ENCOUNTER 2019-04-16 12:45 | Emergency (ER) | payer MEDICARE, MEDICAID ==
--- NOTE | 2019-04-16 15:10 | ED ---
Nausea/Vomiting/Diarrhea HPI - HPI Summary HPI Summary: this patient is a 48-year-old male presenting to the ED with nausea and vomiting. He states he took a second dose of his evening prescription seizure medications on an empty stomach. He states he was unsure if he took it this morning, so took the wrong medication and at the wrong time, also taking it on an empty stomach. He states this is a new medication as been given to him. He has had this medication over the past month, he denies any seizure-like activity. He states he had had 3-4 episodes of nausea and vomiting with no episodes of diarrhea or constipation. After arrival to the ED, the patient states he feels well. He is denying any pain, nausea, vomiting, diaphoresis or any other symptoms. - History of Current Complaint Chief Complaint: EDNauseaVomitDiarrh Stated Complaint: VOMITING PER EMS Time Seen by Provider: 04/16/19 13:38 Hx Obtained From: Patient Onset/Duration: Sudden Onset Timing: Constant Severity Initially: Moderate Severity Currently: Mild Pain Intensity: 0 Pain Scale Used: 0-10 Numeric Aggravating Factor(s): Nothing Alleviating Factor(s): Nothing Nausea/Vomiting Duration: 0-12 hours Diarrhea Presence: No - Allergies/Home Medications Allergies/Adverse Reactions: Allergies Allergy/AdvReac Type Severity Reaction Status Date / Time No Known Allergies Allergy Verified 03/26/18 11:11 PMH/Surg Hx/FS Hx/Imm Hx Previously Healthy: Yes Endocrine/Hematology History: Denies: Hx Diabetes Cardiovascular History: Reports: Other Cardiovascular Problems/Disorders - Recent cardiac workup, will f/u with stress test Denies: Hx Hypertension, Hx Pacemaker/ICD GI History: Reports: Other GI Disorders - right inguinal hernia History: Denies: Hx Renal Disease Sensory History: Denies: Hx Contacts or Glasses, Hx Hearing Aid Opthamlomology History: Denies: Hx Contacts or Glasses Neurological History: Reports: Hx Seizures - reports diagnosed 2010 Denies: Hx Developmental Delay Psychiatric History: Denies: Hx Panic Disorder - Surgical History Surgery Procedure, Year, and Place: wisdom teeth extraction in dental office. vasectomy done in dr anthony office Hx Anesthesia Reactions: No - Immunization History Hx Pertussis Vaccination: No Immunizations Up to Date: Yes Infectious Disease History: No Infectious Disease History: Denies: Traveled Outside the [place] in Last 30 Days - Family History Known Family History: Positive: Seizure Disorder - daughter, Other - Social History Occupation: Employed Full-time Lives: With Family Alcohol Use: Rare Alcohol Amount: 2 glasses beer per week Hx Substance Use: Yes Substance Use Type: Reports: Marijuana Substance Use Comment - Amount & Last Used: medical marijuana Hx Tobacco Use: No Smoking Status (MU): Never Smoked Tobacco Review of Systems Constitutional: Negative Negative: Fever, Chills, Fatigue, Skin Diaphoresis Negative: Palpitations, Chest Pain Negative: Shortness Of Breath, Cough Positive: Vomiting, Nausea Genitourinary: Negative Positive: no symptoms reported, see HPI Negative: Arthralgia, Myalgia Neurological: Negative All Other Systems Reviewed And Are Negative: Yes Physical Exam Triage Information Reviewed: Yes Vital Signs On Initial Exam: Initial Vitals Temp Pulse Resp BP Pulse Ox 96.8 F 47 16 133/78 100 04/16/19 12:49 04/16/19 12:49 04/16/19 12:49 04/16/19 12:49 04/16/19 12:49 Vital Signs Reviewed: Yes Appearance: Positive: Well-Appearing, Well-Nourished Skin: Positive: Warm, Skin Color Reflects Adequate Perfusion Head/Face: Positive: Normal Head/Face Inspection Eyes: Positive: EOMI, ANNAMARIA, Conjunctiva Clear Neck: Positive: Supple, No Lymphadenopathy Respiratory/Lung Sounds: Positive: Clear to Auscultation, Breath Sounds Present Cardiovascular: Positive: RRR, Pulses are Symmetrical in both Upper and Lower Extremities Musculoskeletal: Positive: Normal, Strength/ROM Intact Neurological: Positive: Speech Normal Psychiatric: Positive: Affect/Mood Appropriate Diagnostics - Vital Signs Vital Signs Temp Pulse Resp BP Pulse Ox 04/16/19 12:49 96.8 F 47 16 133/78 100 - Laboratory Lab Statement: Any lab studies that have been ordered have been reviewed, and results considered in the medical decision making process. Naus/Vom/Diarrhea Course/Dx - Course Course Of Treatment: During this course of treatment, the patient is evaluated for nausea and vomiting after taking his nightly dose of seizure medications this morning. He states he believes he took a "double dose". He has never done this before. Symptoms were alleviated after 2-3 episodes of nausea and vomiting. He denies any symptoms now. Patient states he is okay for discharge home. He will resume his medications tomorrow morning. He also mentioned he was having some double vision intermittently and only at night in the dark. He states he has no vision changes at this point. Discussed with the patient follow-up with ophthalmology. - Differential Dx/Diagnosis Provider Diagnosis: Nausea and vomiting, Medication reaction Condition At Discharge: Stable Discharge ED - Sign-Out/Discharge Documenting (check all that apply): Patient Departure Patient Received Moderate/Deep Sedation with Procedure: No - Discharge Plan Condition: Stable Disposition: HOME Referrals: Zakia Henderson DO [Primary Care Provider] - Additional Instructions: Please follow up with ophthalmology - Billing Disposition and Condition Condition: STABLE Disposition: Home
[2019-04-16 15:13] VITALS: BP 125/74
== END 2019-04-16 15:13 | disposition home or self-care (01) ==
LOC: ED 12:45
DX: R11.2 Nausea with vomiting, unspecified (principal); T42.75XA Adverse effect of unspecified antiepileptic and sedative-hypnotic drugs, initial encounter; Y92.9 Unspecified place or not applicable; G40.909 Epilepsy, unspecified, not intractable, without status epilepticus
CPT/HCPCS: 99281

== ENCOUNTER 2020-05-08 12:28 | Inpatient (IN) ==
[2020-05-08] MEDS ORDERED: NS 0.9% 1000 ml BAG 1,000 ML IV ONE (13:43)
[2020-05-08] MEDS ORDERED: Iodixanol (CONTRAST) 320 MG/ML 100 ML SDV IV ONE (13:57)
[2020-05-08 14:25] LABS: Hematocrit 46 % (42-52); Hemoglobin 15.6 g/dL (14.0-18.0); Mean Corpuscular HGB Conc 34 g/dL (31-36); Mean Corpuscular Hemoglobin 31 pg (27-31); Mean Corpuscular Volume 92 fL (80-94); Mean Platelet Volume 7.3 fL (7.4-10.4); Platelet Count 230 10^3/uL (150-450); Red Blood Count 4.96 10^6 /uL (4.18-5.48); Red Cell Distribution Width 15 % (10-15); White Blood Count 8.9 10^3/uL (3.5-10.8)
[2020-05-08 14:34] LABS: Activated Partial Thrombo Time 26.1 seconds (26.0-38.0); INR 1.29 (0.82-1.09)
[2020-05-08 14:48] LABS: ALT 11 U/L (7-52); AST 33 U/L (13-39); Albumin 4.1 g/dL (3.2-5.2); Albumin/Globulin Ratio 0.8 (1-3); Alkaline Phosphatase 58 U/L (34-104); Anion Gap 10 mmol/L (2-11); BUN/Creatinine Ratio 12.4 (8-20); Blood Urea Nitrogen 13 mg/dL (6-24); CO2 Carbon Dioxide 27 mmol/L (22-32); Calcium 9.9 mg/dL (8.6-10.3); Chloride 100 mmol/L (101-111); EGFR African American 90.5 (>60); EGFR Non-African American 74.8 (>60); Globulin 4.9 g/dL (2-4); Glucose 110 mg/dL (70-100); Lipase < 10 U/L (11.0-82.0); Sodium 137 mmol/L (135-145)
[2020-05-08 14:56] LABS: ABS Basophils 0.1 10^3/ul (0-0.2); ABS Lymphocytes 1.4 10^3/ul (1.0-4.8); ABS Monocytes 1.6 10^3/ul (0-0.8); ABS Neutrophils 5.8 10^3/ul (1.5-7.7); Lymphocyte % 15.4 %
[2020-05-08] MEDS ORDERED: Heparin 5000 UNITS/ML 1 mL VIAL IV SCH (16:00)
[2020-05-08] MEDS ORDERED: Heparin DRIP 25,000 UNITS BAG 25,000 UNITS/500 ML BAG IV SCH (16:00)
[2020-05-08] MEDS ORDERED: Metoprolol Tartrate 5 mg VIAL 5 ml VIAL (1 mg/ml) IV ONE (17:58)
[2020-05-08 18:58] LABS: Troponin I 0.91 ng/mL (<0.03)
[2020-05-08] MEDS ORDERED: Nitro 2% OINT (Nitroglycerin) 1 INCH/PAK TOPICAL SCH (19:00)
[2020-05-08 20:11] LABS: C Reactive Protein 15.93 mg/L (<8.01); Cholesterol 168 mg/dL; HDL Cholesterol 42.5 mg/dL; LDL Cholesterol 102 mg/dL; Triglycerides 120 mg/dL
[2020-05-08] MEDS ORDERED: Ondansetron ODT 4 mg TAB 4 MG TAB SL PRN (20:45)
[2020-05-08 21:02] LABS: Erythrocyte Sed Rate 23 mm/Hr (0-19)
[2020-05-09 01:52] LABS: Troponin I 0.75 ng/mL (<0.03)
[2020-05-09] MEDS: Nitro 2% OINT (Nitroglycerin) 1 INCH/PAK TOPICAL SCH ×2 (02:04→07:38)
[2020-05-09 04:22] LABS: ABS Lymphocytes 1.8 10^3/ul (1.0-4.8); ABS Monocytes 1.5 10^3/ul (0-0.8); ABS Neutrophils 3.9 10^3/ul (1.5-7.7); Hematocrit 45 % (42-52); Hemoglobin 15.3 g/dL (14.0-18.0); Lymphocyte % 25.2 %; Mean Corpuscular HGB Conc 34 g/dL (31-36); Mean Corpuscular Hemoglobin 31 pg (27-31); Mean Corpuscular Volume 91 fL (80-94); Mean Platelet Volume 7.4 fL (7.4-10.4); Nucleated Red Blood Cells % 0.1; Platelet Count 225 10^3/uL (150-450); Red Blood Count 4.96 10^6 /uL (4.18-5.48); Red Cell Distribution Width 15 % (10-15); White Blood Count 7.3 10^3/uL (3.5-10.8)
[2020-05-09] MEDS ORDERED: Perflutren Lipid Microsphere 3 ML VIAL ONE (09:09)
[2020-05-09] MEDS: Aspirin EC 81 mg TAB.EC (enteric coated) PO SCH (09:46)
[2020-05-09] MEDS ORDERED: HYDROmorphone 1 MG/1 ML SYRINGE ONE (11:15)
[2020-05-09] MEDS ORDERED: Midazolam 5 mg/5 ml VIAL 1 mg/ml 5 ml VIAL (5 mg) ONE (11:15)
[2020-05-09] MEDS ORDERED: Heparin 1,000 UNIT/ML 10 ml (10,000 UNITS) CATHLAB/DIALYSIS ONE (11:15)
[2020-05-09] MEDS ORDERED: Heparin 2 UNITS/ML 1000 mls 2,000 ML IV ONE (11:16)
[2020-05-09] MEDS ORDERED: Lidocaine 1% VIAL 10 MG/ML VIAL ONE (11:16)
[2020-05-09] MEDS ORDERED: VERAPAMIL 2.5 MG/ML 2 ML VIAL ** 5 mg/2 ml ONE (11:16)
[2020-05-09] MEDS ORDERED: nitroGLYCERIN DRIP 25,000 MCG/250 ML BTL ONE (11:16)
[2020-05-09] MEDS ORDERED: diPHENhydraMINE IV 50 MG/ML 1 ml VIAL (BENADRYL) ONE (11:16)
[2020-05-09] MEDS ORDERED: Iohexol 350 (CONTRAST) 200 ML MDV IV ONE (12:00)
[2020-05-09 12:26] LABS: Magnesium 1.8 mg/dL (1.9-2.7)
[2020-05-09] MEDS: Enoxaparin 40 MG/0.4 ML SYR SUBCUT SCH (14:08)
[2020-05-09] MEDS ORDERED: Magnesium Sulfate 2 gm BAG 2 GM/50 ML BAG IVPB ONE (15:27)
[2020-05-09 17:41] LABS: Troponin I 0.97 ng/mL (<0.03)
[2020-05-09] MEDS ORDERED: Prochlorperazine 5 mg/ml 2 ml VIAL (10 mg) IV PRN (22:30)
[2020-05-09] MEDS ORDERED: NS 0.9% 500 ML BAG IV ONE (22:45)
[2020-05-10 07:18] LABS: ABS Lymphocytes 1.7 10^3/ul (1.0-4.8); ABS Monocytes 1.1 10^3/ul (0-0.8); ABS Neutrophils 1.6 10^3/ul (1.5-7.7); Eosinophil % 0.1 %; Hematocrit 47 % (42-52); Hemoglobin 15.7 g/dL (14.0-18.0); Lymphocyte % 37.6 %; Mean Corpuscular HGB Conc 33 g/dL (31-36); Mean Corpuscular Hemoglobin 31 pg (27-31); Mean Corpuscular Volume 92 fL (80-94); Mean Platelet Volume 7.8 fL (7.4-10.4); Nucleated Red Blood Cells % 0.2; Platelet Count 230 10^3/uL (150-450); Red Blood Count 5.08 10^6 /uL (4.18-5.48); Red Cell Distribution Width 14 % (10-15); White Blood Count 4.4 10^3/uL (3.5-10.8)
[2020-05-10] MEDS: Aspirin EC 81 mg TAB.EC (enteric coated) PO SCH (09:10)
[2020-05-10 09:14] LABS: BUN/Creatinine Ratio 30.3 (8-20); EGFR African American 96.8 (>60); Potassium 4.2 mmol/L (3.5-5.0)
[2020-05-10 11:06] LABS: Magnesium 2.4 mg/dL (1.9-2.7)
[2020-05-10] MEDS: Enoxaparin 40 MG/0.4 ML SYR SUBCUT SCH (13:13)
[2020-05-11 06:02] VITALS: BP 95/73
[2020-05-11] MEDS: Aspirin EC 81 mg TAB.EC (enteric coated) PO SCH (08:23)
[2020-05-11 08:59] LABS: ABS Lymphocytes 1.9 10^3/ul (1.0-4.8); ABS Monocytes 0.6 10^3/ul (0-0.8); ABS Neutrophils 1.8 10^3/ul (1.5-7.7); Eosinophil % 0.2 %; Hematocrit 44 % (42-52); Hemoglobin 14.8 g/dL (14.0-18.0); Lymphocyte % 43.7 %; Mean Corpuscular HGB Conc 34 g/dL (31-36); Mean Corpuscular Hemoglobin 31 pg (27-31); Mean Corpuscular Volume 92 fL (80-94); Mean Platelet Volume 7.5 fL (7.4-10.4); Nucleated Red Blood Cells % 0.3; Platelet Count 212 10^3/uL (150-450); Red Blood Count 4.74 10^6 /uL (4.18-5.48); Red Cell Distribution Width 15 % (10-15); White Blood Count 4.2 10^3/uL (3.5-10.8)
== END 2020-05-11 11:35 | disposition home or self-care (01) | DRG 286 ==
LOC: ED 12:28 → MEDTELE 17:20
PROVIDERS: ADMIT Hospitalist; ATTEND Internal Medicine

== ENCOUNTER 2020-10-04 04:02 | Inpatient (IN) ==
[2020-10-04] MEDS ORDERED: NS 0.9% 1000 ml BAG 1,000 ML IV ONE (06:33)
[2020-10-04 06:40] LABS: Hematocrit 34 % (42-52); Hemoglobin 11.4 g/dL (14.0-18.0); Mean Corpuscular HGB Conc 34 g/dL (31-36); Mean Corpuscular Hemoglobin 30 pg (27-31); Mean Corpuscular Volume 88 fL (80-94); Mean Platelet Volume 8.4 fL (7.4-10.4); Platelet Count 139 10^3/uL (150-450); Red Blood Count 3.83 10^6 /uL (4.18-5.48); Red Cell Distribution Width 20 % (10-15)
[2020-10-04 06:51] LABS: INR 1.1 (0.82-1.09)
[2020-10-04 07:04] LABS: ALT 8 U/L (7-52); AST 23 U/L (13-39); Albumin 3.7 g/dL (3.2-5.2); Albumin/Globulin Ratio 1.1 (1-3); Alkaline Phosphatase 37 U/L (34-104); Anion Gap 4 mmol/L (2-11); BUN/Creatinine Ratio 19.7 (8-20); Blood Urea Nitrogen 28 mg/dL (6-24); CO2 Carbon Dioxide 31 mmol/L (22-32); Calcium 9.5 mg/dL (8.6-10.3); Chloride 105 mmol/L (101-111); EGFR African American 63.6 (>60); EGFR Non-African American 52.6 (>60); Globulin 3.5 g/dL (2-4); Glucose 89 mg/dL (70-100); Magnesium 2.3 mg/dL (1.9-2.7); Potassium 4.7 mmol/L (3.5-5.0); Sodium 140 mmol/L (135-145); Total Protein 7.2 g/dL (6.4-8.9)
[2020-10-04 07:06] LABS: Alcohol, S < 10 mg/dL (<10)
[2020-10-04 07:21] LABS: TSH Ultra Thyroid Stim Horm 6.33 mcIU/mL (0.34-5.60)
[2020-10-04 07:41] LABS: Urine Appearance Cloudy; Urine Bilirubin Negative (Negative); Urine Blood Negative (Negative); Urine Color Yellow; Urine Glucose Negative (Negative); Urine Ketones Negative (Negative); Urine Nitrite Negative (Negative); Urine Protein Negative (Negative); Urine Specific Gravity 1.013 (1.010-1.030); Urine Urobilinogen Negative (Negative)
[2020-10-04 08:20] LABS: ABS Eosinophils 0.1 10^3/ul (0-0.6); ABS Lymphocytes 1.8 10^3/ul (1.0-4.8); ABS Monocytes 0.4 10^3/ul (0-0.8); ABS Neutrophils 0.8 10^3/ul (1.5-7.7); Eosinophil % 2.9 %; Lymphocyte % 58.9 %; Nucleated Red Blood Cells % 0.1
[2020-10-04 08:36] LABS: Free T4 0.67 ng/dL (0.61-1.12)
[2020-10-04 08:39] LABS: Total T3 89 ng/dL (87-178)
[2020-10-04] MEDS: Heparin 5000 UNITS/ML 1 mL VIAL SUBCUT SCH ×2 (13:33→21:32)
[2020-10-04] MEDS: Calcium/Vitamin D TAB 250/125 TAB PO SCH (21:28)
[2020-10-04] MEDS: Aspirin EC 81 mg TAB.EC (enteric coated) PO SCH (21:45)
[2020-10-05 05:29] LABS: Hematocrit 31 % (42-52); Hemoglobin 10.5 g/dL (14.0-18.0); Mean Corpuscular HGB Conc 35 g/dL (31-36); Mean Corpuscular Hemoglobin 30 pg (27-31); Mean Corpuscular Volume 88 fL (80-94); Mean Platelet Volume 7.9 fL (7.4-10.4); Platelet Count 107 10^3/uL (150-450); Red Blood Count 3.47 10^6 /uL (4.18-5.48); Red Cell Distribution Width 19 % (10-15); White Blood Count 2.8 10^3/uL (3.5-10.8)
[2020-10-05 05:35] LABS: ABS Eosinophils 0.1 10^3/ul (0-0.6); ABS Lymphocytes 1.6 10^3/ul (1.0-4.8); ABS Monocytes 0.3 10^3/ul (0-0.8); ABS Neutrophils 0.7 10^3/ul (1.5-7.7); Eosinophil % 2.8 %; Nucleated Red Blood Cells % 0.1
[2020-10-05 05:49] LABS: Calcium 8.4 mg/dL (8.6-10.3); EGFR African American 73.7 (>60); EGFR Non-African American 60.9 (>60); Potassium 4.7 mmol/L (3.5-5.0)
[2020-10-05] MEDS: Heparin 5000 UNITS/ML 1 mL VIAL SUBCUT SCH ×3 (06:27→21:05)
[2020-10-05] MEDS: Calcium/Vitamin D TAB 250/125 TAB PO SCH ×2 (08:31→21:06)
[2020-10-05 14:45] LABS: HIV 4th Generation Nonreactive (Nonreactive)
[2020-10-05] MEDS: Aspirin EC 81 mg TAB.EC (enteric coated) PO SCH (21:06)
[2020-10-05 22:00] LABS: Free T4 0.61 ng/dL (0.61-1.12)
[2020-10-06] MEDS: Heparin 5000 UNITS/ML 1 mL VIAL SUBCUT SCH ×2 (05:16→14:36)
[2020-10-06 06:18] LABS: Hematocrit 33 % (42-52); Hemoglobin 11.1 g/dL (14.0-18.0); Mean Corpuscular HGB Conc 34 g/dL (31-36); Mean Corpuscular Hemoglobin 30 pg (27-31); Mean Corpuscular Volume 88 fL (80-94); Mean Platelet Volume 8.2 fL (7.4-10.4); Platelet Count 105 10^3/uL (150-450); Red Blood Count 3.72 10^6 /uL (4.18-5.48); Red Cell Distribution Width 19 % (10-15); White Blood Count 3.5 10^3/uL (3.5-10.8)
[2020-10-06 06:37] LABS: ABS Neutrophils 0.7 10^3/ul (1.5-7.7)
[2020-10-06 06:38] LABS: Albumin 3.2 g/dL (3.2-5.2); BUN/Creatinine Ratio 21.8 (8-20); EGFR African American 85.4 (>60); EGFR Non-African American 70.6 (>60); Globulin 3.2 g/dL (2-4); Potassium 4.6 mmol/L (3.5-5.0); Total Bilirubin 0.3 mg/dL (0.2-1.0); Total Protein 6.4 g/dL (6.4-8.9)
[2020-10-06 07:48] VITALS: BP 102/64
[2020-10-06] MEDS: Calcium/Vitamin D TAB 250/125 TAB PO SCH (08:31)
[2020-10-06 08:46] LABS: ABS Eosinophils 0.1 10^3/ul (0-0.6); ABS Lymphocytes 2.3 10^3/ul (1.0-4.8); ABS Monocytes 0.4 10^3/ul (0-0.8); Eosinophil % 2.4 %; Lymphocyte % 65.9 %; Nucleated Red Blood Cells % 0.2
[2020-10-06 17:57] LABS: Free Valproic Acid 15 mcg/mL (5 - 25); Total Valproic Acid 56 mcg/mL (50 - 125)
== END 2020-10-06 15:10 | disposition home or self-care (01) | DRG 101 ==
LOC: ED 04:02 → MED 04:02
PROVIDERS: ADMIT Internal Medicine; ATTEND Internal Medicine